=== PATIENT | female | born 1935 | race Two or more races ===

== ENCOUNTER 2016-05-18 17:12 | Inpatient (IN) | payer SELFPAY ==
[~2016-05-18] VITALS: Ht 160 cm; Wt 62.7 kg
[~2016-05-18 17:12] MED LIST: AMLO10TA2 PO; FERR-26 PO; FLUT1DIS3 INH; GLIP10TA13 PO; LOSA50TA6 PO; METF500T4 PO; PRED20TA PO; VENTOLIN HFA18 GM INH
[2016-05-18 18:23] LABS: BILIRUBIN,URINE NEGATIVE (NEG); GLUCOSE,URINE NEGATIVE (NEG); NITRITE,URINE NEGATIVE (NEG); PH,URINE 5.5; UROBILINOGEN,URINE 0.2 mg/dL (0.2 mg/dL)
[2016-05-18 18:30] LABS: BACTERIA,URINE 0 /HPF (0-FEW); PROTEIN,URINE TRACE mg/dL (NEG-TRACE); RBC,URINE OCC /HPF (0-2); SQUAMOUS EPITHELIAL CELL,UR FEW /LPF
[2016-05-18 18:40] LABS: BASO # 0.2 x10^3/uL (0.0-0.2); BASO % 3 % (0-3); EOS % 1 % (0-3); LYMPH # 1.6 x10^3/uL (1.0-4.8); LYMPH % 28 % (24-48); MEAN CORPUSCULAR HEMOGLOBIN 20 pg (25-35); MEAN CORPUSCULAR HGB CONC 29 g/dL (31-37); MEAN CORPUSCULAR VOLUME 70 fL (79-100); MONO % 12 % (0-9); NEUT % 56 % (31-73); PLATELET COUNT 452 x10^3/uL (140-400); RED BLOOD COUNT 2.88 x10^6/uL (3.50-5.40); RED CELL DISTRIBUTION WIDTH 20.3 % (11.5-14.5); WHITE BLOOD COUNT 5.9 x10^3/uL (4.0-11.0)
[2016-05-18 18:45] LABS: HEMATOCRIT 20.1 % (36.0-47.0); HEMOGLOBIN 5.9 g/dL (12.0-15.5)
[2016-05-18 18:46] LABS: INR 1.1 (0.8-1.1); PROTHROMBIN TIME PATIENT 13.3 SEC (11.7-14.0)
[2016-05-18 18:56] LABS: CALCIUM 8.3 mg/dL (8.5-10.1); CREATININE 0.9 mg/dL (0.6-1.0); GFR 60.6; POTASSIUM 4.4 mmol/L (3.5-5.1)
[2016-05-18 19:00] LABS: ALBUMIN 3.4 g/dL (3.4-5.0); ALBUMIN/GLOBULIN RATIO 1.2 (1.0-1.7); TOTAL BILIRUBIN 0.3 mg/dL (0.2-1.0); TOTAL PROTEIN 6.2 g/dL (6.4-8.2)
[2016-05-18] MEDS ORDERED: ONDANSETRON PF 4 MG/2 ML VIAL. IV PRN ×2 (19:00→20:15)
[2016-05-18] MEDS ORDERED: ACETAMINOPHEN 325 MG TABLET. PO PRN ×2 (19:00→20:15)
--- NOTE | 2016-05-18 19:10 | PHYS DOC ---
Past Medical History Past Medical History: Anemia, Asthma, Bronchitis, Diabetes-Type II, Hypertension Past Surgical History: Cholecystectomy Additional Past Surgical Histo: unknown abdominal surgery Alcohol Use: None Drug Use: None Adult General Chief Complaint Chief Complaint: ABNORMAL LABS HPI HPI 80-year-old female with history of anemia resents from her primary care physician's office secondary to some generalized weakness exertional dyspnea and the fact that she looked pale to her physician. Patient denies any chest pain. She's had no fever chills or sweats. No nausea or vomiting. She has not had any melena or hematemesis. [] Review of Systems Review of Systems Constitutional: Denies fever or chills [] Eyes: Denies change in visual acuity, redness, or eye pain [] HENT: Denies nasal congestion or sore throat [] Respiratory: Denies cough or shortness of breath [] Cardiovascular: No additional information not addressed in HPI [] GI: Denies abdominal pain, nausea, vomiting, bloody stools or diarrhea [] : Denies dysuria or hematuria [] Musculoskeletal: Denies back pain or joint pain [] Integument: Pallor [] Neurologic: Denies headache, focal weakness or sensory changes [] Endocrine: Denies polyuria or polydipsia [] Current Medications Current Medications Current Medications Medications (Trade) Dose Ordered Sig/[facility] Start Time Stop Time Status Last Admin Dose Admin Acetaminophen (Tylenol) 650 mg PRN Q4HRS PRN 05/18/16 19:00 05/19/16 18:59 Ondansetron HCl (Zofran) 4 mg PRN Q8HRS PRN 05/18/16 19:00 05/19/16 18:59 Allergies Allergies Allergies Coded Allergies Type Severity Reaction Last Updated Verified No Known Drug Allergies 11/17/13 No Physical Exam Physical Exam Constitutional: Well developed, well nourished, no acute distress, non-toxic appearance. [] HENT: Normocephalic, atraumatic, bilateral external ears normal, oropharynx moist, no oral exudates, nose normal. [] Eyes: PERRLA, EOMI, conjunctiva pale, no discharge. [] Neck: Normal range of motion, no tenderness, supple, no stridor. [] Cardiovascular:Heart rate regular rhythm, no murmur [] Lungs & Thorax: Bilateral breath sounds clear to auscultation [] Abdomen: Bowel sounds normal, soft, no tenderness, no masses, no pulsatile masses. [] Skin: Warm, dry, no erythema, no rash, pallor. [] Back: No tenderness, no CVA tenderness. [] Extremities: No tenderness, no cyanosis, no clubbing, ROM intact, no edema. [] Neurologic: Alert and oriented X 3, normal motor function, normal sensory function, no focal deficits noted. [] Psychologic: Affect normal, judgement normal, mood normal. [] Current Patient Data Vital Signs Vital Signs Date Time Temp Pulse Resp B/P Pulse Ox O2 Delivery O2 Flow Rate FiO2 05/18/16 18:16 98.7 99 18 133/80 97 Room Air 98.7 Lab Values Laboratory Tests Test 05/18/16 18:00 05/18/16 18:30 Urine Collection Type Unknown Urine Color Yellow Urine Clarity Clear Urine pH 5.5 Urine Specific [place] 1.015 Urine Protein Tracemg/dL (NEG-TRACE) Urine Glucose (UA) Negativemg/dL (NEG) Urine Ketones (Stick) Negativemg/dL (NEG) Urine Blood Negative (NEG) Urine Nitrite Negative (NEG) Urine Bilirubin Negative (NEG) Urine Urobilinogen Dipstick 0.2mg/dL (0.2 mg/dL) Urine Leukocyte Esterase Small (NEG) Urine RBC Occ/HPF (0-2) Urine WBC 5-10/HPF (0-4) Urine Squamous Epithelial Cells Few/LPF Urine Bacteria 0/HPF (0-FEW) Urine Mucus Slight/LPF White Blood Count 5.9x10^3/uL (4.0-11.0) Red Blood Count 2.88x10^6/uL (3.50-5.40) L Hemoglobin 5.9g/dL (12.0-15.5) *L Hematocrit 20.1% (36.0-47.0) *L Mean Corpuscular Volume 70fL (79-100) L Mean Corpuscular Hemoglobin 20pg (25-35) L Mean Corpuscular Hemoglobin Concent 29g/dL (31-37) L Red Cell Distribution Width 20.3% (11.5-14.5) H Platelet Count 452x10^3/uL (140-400) H Neutrophils (%) (Auto) 56% (31-73) Lymphocytes (%) (Auto) 28% (24-48) Monocytes (%) (Auto) 12% (0-9) H Eosinophils (%) (Auto) 1% (0-3) Basophils (%) (Auto) 3% (0-3) Neutrophils # (Auto) 3.3x10^3uL (1.8-7.7) Lymphocytes # (Auto) 1.6x10^3/uL (1.0-4.8) Monocytes # (Auto) 0.7x10^3/uL (0.0-1.1) Eosinophils # (Auto) 0.1x10^3/uL (0.0-0.7) Basophils # (Auto) 0.2x10^3/uL (0.0-0.2) Platelet Estimate Pending Prothrombin Time 13.3SEC (11.7-14.0) Prothrombin Time INR 1.1 (0.8-1.1) Sodium Level 142mmol/L (136-145) Potassium Level 4.4mmol/L (3.5-5.1) Chloride Level 105mmol/L (98-107) Carbon Dioxide Level 23mmol/L (21-32) Anion Gap 14 (6-14) Blood Urea Nitrogen 9mg/dL (7-20) Creatinine 0.9mg/dL (0.6-1.0) Estimated GFR (Cockcroft-Gault) 60.6 BUN/Creatinine Ratio 10 (6-20) Glucose Level 133mg/dL (70-99) H Calcium Level 8.3mg/dL (8.5-10.1) L Total Bilirubin 0.3mg/dL (0.2-1.0) Aspartate Amino Transferase (AST) 14U/L (15-37) L Alanine Aminotransferase (ALT) 12U/L (14-59) L Alkaline Phosphatase 45U/L (46-116) L Total Protein 6.2g/dL (6.4-8.2) L Albumin 3.4g/dL (3.4-5.0) Albumin/Globulin Ratio 1.2 (1.0-1.7) Laboratory Tests 05/18/16 18:30 Laboratory Tests 05/18/16 18:30 EKG EKG [] Radiology/Procedures Radiology/Procedures [] Course & Med Decision Making Course & Med Decision Making Pertinent Labs and Imaging studies reviewed. (See chart for details) [ED course: Evaluation reveals a very pale-appearing 80-year-old female with a dangerously low hemoglobin and hematocrit. I have typed and crossed her for 2 units of packed red blood cells and given permission to the nurses to go ahead and transfuse. I spoke with the hospitalist who agreed to accept the patient for admission. We will also consult the GI service for further evaluation] Dragon Disclaimer Dragon Disclaimer This electronic medical record was generated, in whole or in part, using a voice recognition dictation system. Departure Departure Impression: Primary Impression: Anemia Additional Impression: Symptomatic anemia Disposition: 09 ADMITTED INPATIENT Admitting Physician: Gabriel Markham Condition: STABLE Referrals: MAIDA ROBERTS DO (PCP) Problem Qualifiers Primary Impression: Anemia Anemia type: unspecified type Qualified Code: D64.9 - Anemia, unspecified TRACE HEIN DO May 18, 2016 19:09
[2016-05-18 19:31] LABS: ANISOCYTOSIS SLIGHT; PLT ESTIMATE INCREASED (ADEQUATE); POLYCHROMASIA SLIGHT; TARGET CELLS MOD
[2016-05-18] MEDS ORDERED: ALBUTEROL SULFATE 2.5 MG/3 ML NEBU. NEB PRN (20:15)
[2016-05-18] MEDS ORDERED: HYDROCODONE/APAP 5/325MG TABLET. PO PRN (20:15)
[2016-05-18] MEDS ORDERED: hydrALAZINE 20 MG/ML VIAL. IVP PRN (20:15)
[2016-05-18] MEDS ORDERED: LORA10TA3 PO (22:05)
[2016-05-18] MEDS ORDERED: CALC-530 PO (22:05)
[2016-05-18] MEDS ORDERED: OMEP20TA PO (22:05)
[2016-05-18] MEDS ORDERED: PROVENTIL HFA6.7 GM IH (22:10)
--- NOTE | 2016-05-18 22:53 | PDOC1 ---
History and Physical Past Medical History Cardiovascular: HTN Pulmonary: Asthma, Bronchitis Heme/Onc: Anemia NOS, Iron deficiency Anemia Past Surgical History Past Surgical History: No pertinent history Family History Family History: No Significant, Family History Unknown, Other (? HTN) Social History ALCOHOL: none Drugs: None Current Problem List Problem List Problems Medical Problems: (1) Anemia Status: Acute (2) Symptomatic anemia Status: Acute Current Medications Current Medications Current Medications Medications (Trade) Dose Ordered Sig/Kristen Start Time Stop Time Status Last Admin Dose Admin Acetaminophen (Tylenol) 325 mg PRN Q6HRS PRN 05/18/16 20:15 Acetaminophen/ Hydrocodone Bitart (Lortab 5/325) 1 tab PRN Q6HRS PRN 05/18/16 20:15 Albuterol Sulfate (Ventolin Neb Soln) 2.5 mg PRN Q4HRS PRN 05/18/16 20:15 Hydralazine HCl (Apresoline) 10 mg PRN Q4HRS PRN 05/18/16 20:15 Ondansetron HCl (Zofran) 4 mg PRN Q8HRS PRN 05/18/16 20:15 Allergies Allergies Allergies Coded Allergies Type Severity Reaction Last Updated Verified No Known Drug Allergies 11/17/13 No ROS Review of System CONSTITUTIONAL: No fever or chills EYES: No recent changes SKIN: No rash or itching CARDIOVASCULAR: No chest pain, syncope, palpitations, or edema RESPIRATORY: No SOB or cough GASTROINTESTINAL: No nausea, vomiting or abdominal pain NEUROLOGICAL: No headaches or weakness ENDOCRINE: No cold or heat intolerance GENITOURINARY: No urgency or frequency of urination MUSCULOSKELETAL: No back pain or joint pain LYMPHATICS: No enlarged lymph nodes PSYCHIATRIC: No anxiety or depression Physical Exam Physical Exam GEN.: No apparent distress. Alert and oriented. HEENT: Head is normocephalic, atraumatic NECK: Supple. NO jvd LUNGS: Clear to auscultation. normal air flow HEART: RRR, S1, S2 present. Peripheral pulses intact ABDOMEN: Soft, nontender. Positive bowel sounds. EXTREMITIES: Without any cyanosis. NEUROLOGIC: Normal speech, normal tone PSYCHIATRIC: Normal affect, normal mood. SKIN: No ulcerations Vitals Vitals Vital Signs Date Time Temp Pulse Resp B/P Pulse Ox O2 Delivery O2 Flow Rate FiO2 05/18/16 22:04 98 Room Air 05/18/16 19:11 90 18 122/57 05/18/16 18:16 98.7 98.7 Labs Labs Laboratory Tests Test 05/18/16 18:00 05/18/16 18:30 Urine Collection Type Unknown Urine Color Yellow Urine Clarity Clear Urine pH 5.5 Urine Specific [place] 1.015 Urine Protein Tracemg/dL (NEG-TRACE) Urine Glucose (UA) Negativemg/dL (NEG) Urine Ketones (Stick) Negativemg/dL (NEG) Urine Blood Negative (NEG) Urine Nitrite Negative (NEG) Urine Bilirubin Negative (NEG) Urine Urobilinogen Dipstick 0.2mg/dL (0.2 mg/dL) Urine Leukocyte Esterase Small (NEG) Urine RBC Occ/HPF (0-2) Urine WBC 5-10/HPF (0-4) Urine Squamous Epithelial Cells Few/LPF Urine Bacteria 0/HPF (0-FEW) Urine Mucus Slight/LPF White Blood Count 5.9x10^3/uL (4.0-11.0) Red Blood Count 2.88x10^6/uL (3.50-5.40) Hemoglobin 5.9g/dL (12.0-15.5) Hematocrit 20.1% (36.0-47.0) Mean Corpuscular Volume 70fL (79-100) Mean Corpuscular Hemoglobin 20pg (25-35) Mean Corpuscular Hemoglobin Concent 29g/dL (31-37) Red Cell Distribution Width 20.3% (11.5-14.5) Platelet Count 452x10^3/uL (140-400) Neutrophils (%) (Auto) 56% (31-73) Lymphocytes (%) (Auto) 28% (24-48) Monocytes (%) (Auto) 12% (0-9) Eosinophils (%) (Auto) 1% (0-3) Basophils (%) (Auto) 3% (0-3) Neutrophils # (Auto) 3.3x10^3uL (1.8-7.7) Lymphocytes # (Auto) 1.6x10^3/uL (1.0-4.8) Monocytes # (Auto) 0.7x10^3/uL (0.0-1.1) Eosinophils # (Auto) 0.1x10^3/uL (0.0-0.7) Basophils # (Auto) 0.2x10^3/uL (0.0-0.2) Platelet Estimate Increased (ADEQUATE) Polychromasia Slight Anisocytosis Slight Target Cells Mod Prothrombin Time 13.3SEC (11.7-14.0) Prothromb Time International Ratio 1.1 (0.8-1.1) Sodium Level 142mmol/L (136-145) Potassium Level 4.4mmol/L (3.5-5.1) Chloride Level 105mmol/L (98-107) Carbon Dioxide Level 23mmol/L (21-32) Anion Gap 14 (6-14) Blood Urea Nitrogen 9mg/dL (7-20) Creatinine 0.9mg/dL (0.6-1.0) Estimated GFR (Cockcroft-Gault) 60.6 BUN/Creatinine Ratio 10 (6-20) Glucose Level 133mg/dL (70-99) Calcium Level 8.3mg/dL (8.5-10.1) Total Bilirubin 0.3mg/dL (0.2-1.0) Aspartate Amino Transf (AST/SGOT) 14U/L (15-37) Alanine Aminotransferase (ALT/SGPT) 12U/L (14-59) Alkaline Phosphatase 45U/L (46-116) Total Protein 6.2g/dL (6.4-8.2) Albumin 3.4g/dL (3.4-5.0) Albumin/Globulin Ratio 1.2 (1.0-1.7) Laboratory Tests Test 05/18/16 18:00 05/18/16 18:30 Urine Collection Type Unknown Urine Color Yellow Urine Clarity Clear Urine pH 5.5 Urine Specific [place] 1.015 Urine Protein Tracemg/dL (NEG-TRACE) Urine Glucose (UA) Negativemg/dL (NEG) Urine Ketones (Stick) Negativemg/dL (NEG) Urine Blood Negative (NEG) Urine Nitrite Negative (NEG) Urine Bilirubin Negative (NEG) Urine Urobilinogen Dipstick 0.2mg/dL (0.2 mg/dL) Urine Leukocyte Esterase Small (NEG) Urine RBC Occ/HPF (0-2) Urine WBC 5-10/HPF (0-4) Urine Squamous Epithelial Cells Few/LPF Urine Bacteria 0/HPF (0-FEW) Urine Mucus Slight/LPF White Blood Count 5.9x10^3/uL (4.0-11.0) Red Blood Count 2.88x10^6/uL (3.50-5.40) Hemoglobin 5.9g/dL (12.0-15.5) Hematocrit 20.1% (36.0-47.0) Mean Corpuscular Volume 70fL (79-100) Mean Corpuscular Hemoglobin 20pg (25-35) Mean Corpuscular Hemoglobin Concent 29g/dL (31-37) Red Cell Distribution Width 20.3% (11.5-14.5) Platelet Count 452x10^3/uL (140-400) Neutrophils (%) (Auto) 56% (31-73) Lymphocytes (%) (Auto) 28% (24-48) Monocytes (%) (Auto) 12% (0-9) Eosinophils (%) (Auto) 1% (0-3) Basophils (%) (Auto) 3% (0-3) Neutrophils # (Auto) 3.3x10^3uL (1.8-7.7) Lymphocytes # (Auto) 1.6x10^3/uL (1.0-4.8) Monocytes # (Auto) 0.7x10^3/uL (0.0-1.1) Eosinophils # (Auto) 0.1x10^3/uL (0.0-0.7) Basophils # (Auto) 0.2x10^3/uL (0.0-0.2) Platelet Estimate Increased (ADEQUATE) Polychromasia Slight Anisocytosis Slight Target Cells Mod Prothrombin Time 13.3SEC (11.7-14.0) Prothromb Time International Ratio 1.1 (0.8-1.1) Sodium Level 142mmol/L (136-145) Potassium Level 4.4mmol/L (3.5-5.1) Chloride Level 105mmol/L (98-107) Carbon Dioxide Level 23mmol/L (21-32) Anion Gap 14 (6-14) Blood Urea Nitrogen 9mg/dL (7-20) Creatinine 0.9mg/dL (0.6-1.0) Estimated GFR (Cockcroft-Gault) 60.6 BUN/Creatinine Ratio 10 (6-20) Glucose Level 133mg/dL (70-99) Calcium Level 8.3mg/dL (8.5-10.1) Total Bilirubin 0.3mg/dL (0.2-1.0) Aspartate Amino Transf (AST/SGOT) 14U/L (15-37) Alanine Aminotransferase (ALT/SGPT) 12U/L (14-59) Alkaline Phosphatase 45U/L (46-116) Total Protein 6.2g/dL (6.4-8.2) Albumin 3.4g/dL (3.4-5.0) Albumin/Globulin Ratio 1.2 (1.0-1.7) VTE Prophylaxis Ordered VTE Prophylaxis Devices: Yes VTE Pharmacological Prophylaxi: No HILDA PRATT MD May 18, 2016 22:53
[2016-05-18 23:00] VITALS: BP 120/57
[2016-05-19] VITALS (13 sets, daily range): BP systolic 107–152; BP diastolic 39–74
--- NOTE | 2016-05-19 01:20 | HP ---
ADMIT DATE: 05/18/2016 CHIEF COMPLAINT: 1. Symptomatic anemia. 2. Abnormal labs. HISTORY OF PRESENT ILLNESS: A 80-year-old female patient with prior history of anemia, iron deficiency, presented to the ER with complaints of abnormal labs. The patient was seen by primary care doctor and office called the patient to go to ER due to abnormal labs and generalized weakness. The patient's hemoglobin was 5.1 and she is complaining of fatigue. Denies any upper or lower GI bleeding. However, the patient had chronic internal hemorrhoids and also in the past she had evaluation by Gastroenterology in 07/2015. PAST MEDICAL HISTORY, PHYSICAL EXAM AND REVIEW OF SYSTEMS: Please see my electronic H and P. LABORATORY FINDINGS: 1. Hemoglobin is 5.9, previous hemoglobin 9.4, hematocrit ____ MCV 70, and platelets 452. 2. Chemistry: Sodium is 142, potassium ____ chloride is 105, carbon dioxide 23, BUN is 14, creatinine is 0.9, GFR is 60.6. AST is 12, ALT 45. 3. Coagulation panel: INR is 1.1, PT 13.3. IMAGING STUDIES: Not done. ASSESSMENT: Acute symptomatic anemia, suspected iron deficiency anemia. PLAN: 1. Two units of PRBC have been ordered and we will continue to transfuse tonight. 2. Gastroenterology has been consulted ____. 3. ____ medications reviewed and reconciled ____ diabetes and hypertension. If blood pressure more than 160, patient will receive IV hydralazine. 4. Regular diet. 5. P.r.n. nebulizations. 6. No DVT prophylaxis. HILDA PRATT MD DR: KOFI/lesley JOB#: [id number] / [id number]
[2016-05-19 06:51] LABS: BASO # 0.1 x10^3/uL (0.0-0.2); BASO % 2 % (0-3); EOS % 2 % (0-3); HEMATOCRIT 28.7 % (36.0-47.0); HEMOGLOBIN 8.7 g/dL (12.0-15.5); LYMPH # 1.2 x10^3/uL (1.0-4.8); LYMPH % 26 % (24-48); MEAN CORPUSCULAR HEMOGLOBIN 23 pg (25-35); MEAN CORPUSCULAR HGB CONC 31 g/dL (31-37); MEAN CORPUSCULAR VOLUME 76 fL (79-100); MONO % 13 % (0-9); NEUT % 57 % (31-73); PLATELET COUNT 384 x10^3/uL (140-400); RED BLOOD COUNT 3.79 x10^6/uL (3.50-5.40); RED CELL DISTRIBUTION WIDTH 23.9 % (11.5-14.5); WHITE BLOOD COUNT 4.6 x10^3/uL (4.0-11.0)
[2016-05-19 07:13] LABS: CREATININE 0.7 mg/dL (0.6-1.0); GFR 80.9; TOTAL BILIRUBIN 0.6 mg/dL (0.2-1.0); TOTAL PROTEIN 6.1 g/dL (6.4-8.2)
[2016-05-19] MEDS: LOSARTAN POTASSIUM 50 MG TABLET. PO SCH (09:00)
--- NOTE | 2016-05-19 09:50 | PDOC2 ---
GI CONSULT Reason For Consult: Symptomatic anemia HPI: HPI: 80 y/o female who speaks Nepalese. At the time I saw her, her daughter was present but unable to provide translation. Per chart, sent to ER from PCP's office w/ exertional dyspnea. Labs show Hgb 5.9 (now 8.7 s/p transfusion 2 units). H/o ELYSE (?AVMs) w/ colonoscopy by Dr. Turner in 07/2015 revealing sigmoid diverticulosis and internal hemorrhoids. At that time, iron studies were low and folic acid, retic count, and B12 were WNL. It's unclear if she's had previous EGD. She denies obvious bleeding and abdominal pain.She has been kept NPO. PMH: PMH: from chart - asthma/COPD, bronchitis, DM, HTN, HLD, OA, depression, GERD, allergic rhinitis Social History: ALCOHOL: none Drugs: None ROS: Difficult w/ communication barrier. RESP: +SOA GI: Per HPI VItals: Vitals: Vital Signs Date Time Temp Pulse Resp B/P Pulse Ox O2 Delivery O2 Flow Rate FiO2 05/19/16 08:47 98.1 74 18 128/68 96 Room Air 98.1 Labs: Labs: Laboratory Tests Test 05/18/16 18:00 05/18/16 18:30 05/19/16 06:40 05/19/16 07:48 Urine Collection Type Unknown Urine Color Yellow Urine Clarity Clear Urine pH 5.5 Urine Specific [place] 1.015 Urine Protein Tracemg/dL (NEG-TRACE) Urine Glucose (UA) Negativemg/dL (NEG) Urine Ketones (Stick) Negativemg/dL (NEG) Urine Blood Negative (NEG) Urine Nitrite Negative (NEG) Urine Bilirubin Negative (NEG) Urine Urobilinogen Dipstick 0.2mg/dL (0.2 mg/dL) Urine Leukocyte Esterase Small (NEG) Urine RBC Occ/HPF (0-2) Urine WBC 5-10/HPF (0-4) Urine Squamous Epithelial Cells Few/LPF Urine Bacteria 0/HPF (0-FEW) Urine Mucus Slight/LPF White Blood Count 5.9x10^3/uL (4.0-11.0) 4.6x10^3/uL (4.0-11.0) Red Blood Count 2.88x10^6/uL (3.50-5.40) 3.79x10^6/uL (3.50-5.40) Hemoglobin 5.9g/dL (12.0-15.5) 8.7g/dL (12.0-15.5) Hematocrit 20.1% (36.0-47.0) 28.7% (36.0-47.0) Mean Corpuscular Volume 70fL (79-100) 76fL (79-100) Mean Corpuscular Hemoglobin 20pg (25-35) 23pg (25-35) Mean Corpuscular Hemoglobin Concent 29g/dL (31-37) 31g/dL (31-37) Red Cell Distribution Width 20.3% (11.5-14.5) 23.9% (11.5-14.5) Platelet Count 452x10^3/uL (140-400) 384x10^3/uL (140-400) Neutrophils (%) (Auto) 56% (31-73) 57% (31-73) Lymphocytes (%) (Auto) 28% (24-48) 26% (24-48) Monocytes (%) (Auto) 12% (0-9) 13% (0-9) Eosinophils (%) (Auto) 1% (0-3) 2% (0-3) Basophils (%) (Auto) 3% (0-3) 2% (0-3) Neutrophils # (Auto) 3.3x10^3uL (1.8-7.7) 2.6x10^3uL (1.8-7.7) Lymphocytes # (Auto) 1.6x10^3/uL (1.0-4.8) 1.2x10^3/uL (1.0-4.8) Monocytes # (Auto) 0.7x10^3/uL (0.0-1.1) 0.6x10^3/uL (0.0-1.1) Eosinophils # (Auto) 0.1x10^3/uL (0.0-0.7) 0.1x10^3/uL (0.0-0.7) Basophils # (Auto) 0.2x10^3/uL (0.0-0.2) 0.1x10^3/uL (0.0-0.2) Platelet Estimate Increased (ADEQUATE) Polychromasia Slight Anisocytosis Slight Target Cells Mod Prothrombin Time 13.3SEC (11.7-14.0) Prothromb Time International Ratio 1.1 (0.8-1.1) Sodium Level 142mmol/L (136-145) 138mmol/L (136-145) Potassium Level 4.4mmol/L (3.5-5.1) 4.0mmol/L (3.5-5.1) Chloride Level 105mmol/L (98-107) 107mmol/L (98-107) Carbon Dioxide Level 23mmol/L (21-32) 24mmol/L (21-32) Anion Gap 14 (6-14) 7 (6-14) Blood Urea Nitrogen 9mg/dL (7-20) 5mg/dL (7-20) Creatinine 0.9mg/dL (0.6-1.0) 0.7mg/dL (0.6-1.0) Estimated GFR (Cockcroft-Gault) 60.6 80.9 BUN/Creatinine Ratio 10 (6-20) 7 (6-20) Glucose Level 133mg/dL (70-99) 107mg/dL (70-99) Calcium Level 8.3mg/dL (8.5-10.1) 8.0mg/dL (8.5-10.1) Total Bilirubin 0.3mg/dL (0.2-1.0) 0.6mg/dL (0.2-1.0) Aspartate Amino Transf (AST/SGOT) 14U/L (15-37) 11U/L (15-37) Alanine Aminotransferase (ALT/SGPT) 12U/L (14-59) 6U/L (14-59) Alkaline Phosphatase 45U/L (46-116) 44U/L (46-116) Total Protein 6.2g/dL (6.4-8.2) 6.1g/dL (6.4-8.2) Albumin 3.4g/dL (3.4-5.0) 3.0g/dL (3.4-5.0) Albumin/Globulin Ratio 1.2 (1.0-1.7) 1.0 (1.0-1.7) Glucose (Fingerstick) 113mg/dL (70-99) Allergies: Coded Allergies: No Known Drug Allergies (Unverified , 11/17/13) Medications: Please see EMR. PE: GEN: NAD HEENT: Atraumatic, PERRL LUNGS: CTAB HEART: RRR ABD: NABS, S/ND/NT EXTREMITY: No edema SKIN: No rashes, no jaundice NEURO/PSYCH: A & O 3 A/P: A/P: ELYSE -history of -Hgb improved s/p transfusion -on iron and omeprazole at home (per list) CRC screen -colonoscopy 07/2015 -- Difficult w/language barrier. D/w Dr. Turner, GI lab - tentatively plan for EGD this afternoon r/o upper GI source. Keep NPO. D/w RN - hopefully can locate [employer] phone, I will return to discuss EGD, etc. w/ pt. Update: unable to locate [employer] phone, although it is a bit easier to communicate w/ daughter later in this morning. Pt/daughter are agreeable to EGD this afternoon. Daughter says the pt had an EGD a couple years ago that was normal. SHEREEN BERG May 19, 2016 09:50
[2016-05-19] MEDS: PANTOPRAZOLE IV PUSH 40 MG VIAL. IVP SCH (10:30)
[2016-05-19] MEDS ORDERED: IV RINGERS,LACTATED 1000ML 1,000 ML IV SCH (11:42)
[2016-05-19] MEDS ORDERED: PROPOFOL 20 ML IV ONE (13:30)
--- NOTE | 2016-05-19 13:44 | PDOC ---
PROGRESS NOTES Chief Complaint Chief Complaint 1. Symptomatic anemia 2. Microcytic anemia r/o acute blood loss 3. ELYSE History of Present Illness History of Present Illness HAving an egd done Chart reviewed HGb upt o 8 from 5 after 2 pRBC VS stable Vitals Vitals Vital Signs Date Time Temp Pulse Resp B/P Pulse Ox O2 Delivery O2 Flow Rate FiO2 05/19/16 13:03 Room Air 05/19/16 13:00 98.5 82 20 97 98.5 05/19/16 10:50 131/64 Physical Exam General: Alert, Oriented X3, Cooperative Heart: Regular rate, Normal S1, Normal S2 Lungs: Clear Abdomen: Normal bowel sounds, Soft Extremities: No clubbing, No cyanosis Skin: No rashes, No breakdown Labs LABS Laboratory Tests Test 05/18/16 18:00 05/18/16 18:30 05/19/16 06:40 05/19/16 07:48 Urine Collection Type Unknown Urine Color Yellow Urine Clarity Clear Urine pH 5.5 Urine Specific [place] 1.015 Urine Protein Tracemg/dL (NEG-TRACE) Urine Glucose (UA) Negativemg/dL (NEG) Urine Ketones (Stick) Negativemg/dL (NEG) Urine Blood Negative (NEG) Urine Nitrite Negative (NEG) Urine Bilirubin Negative (NEG) Urine Urobilinogen Dipstick 0.2mg/dL (0.2 mg/dL) Urine Leukocyte Esterase Small (NEG) Urine RBC Occ/HPF (0-2) Urine WBC 5-10/HPF (0-4) Urine Squamous Epithelial Cells Few/LPF Urine Bacteria 0/HPF (0-FEW) Urine Mucus Slight/LPF White Blood Count 5.9x10^3/uL (4.0-11.0) 4.6x10^3/uL (4.0-11.0) Red Blood Count 2.88x10^6/uL (3.50-5.40) 3.79x10^6/uL (3.50-5.40) Hemoglobin 5.9g/dL (12.0-15.5) 8.7g/dL (12.0-15.5) Hematocrit 20.1% (36.0-47.0) 28.7% (36.0-47.0) Mean Corpuscular Volume 70fL (79-100) 76fL (79-100) Mean Corpuscular Hemoglobin 20pg (25-35) 23pg (25-35) Mean Corpuscular Hemoglobin Concent 29g/dL (31-37) 31g/dL (31-37) Red Cell Distribution Width 20.3% (11.5-14.5) 23.9% (11.5-14.5) Platelet Count 452x10^3/uL (140-400) 384x10^3/uL (140-400) Neutrophils (%) (Auto) 56% (31-73) 57% (31-73) Lymphocytes (%) (Auto) 28% (24-48) 26% (24-48) Monocytes (%) (Auto) 12% (0-9) 13% (0-9) Eosinophils (%) (Auto) 1% (0-3) 2% (0-3) Basophils (%) (Auto) 3% (0-3) 2% (0-3) Neutrophils # (Auto) 3.3x10^3uL (1.8-7.7) 2.6x10^3uL (1.8-7.7) Lymphocytes # (Auto) 1.6x10^3/uL (1.0-4.8) 1.2x10^3/uL (1.0-4.8) Monocytes # (Auto) 0.7x10^3/uL (0.0-1.1) 0.6x10^3/uL (0.0-1.1) Eosinophils # (Auto) 0.1x10^3/uL (0.0-0.7) 0.1x10^3/uL (0.0-0.7) Basophils # (Auto) 0.2x10^3/uL (0.0-0.2) 0.1x10^3/uL (0.0-0.2) Platelet Estimate Increased (ADEQUATE) Polychromasia Slight Anisocytosis Slight Target Cells Mod Prothrombin Time 13.3SEC (11.7-14.0) Prothromb Time International Ratio 1.1 (0.8-1.1) Sodium Level 142mmol/L (136-145) 138mmol/L (136-145) Potassium Level 4.4mmol/L (3.5-5.1) 4.0mmol/L (3.5-5.1) Chloride Level 105mmol/L (98-107) 107mmol/L (98-107) Carbon Dioxide Level 23mmol/L (21-32) 24mmol/L (21-32) Anion Gap 14 (6-14) 7 (6-14) Blood Urea Nitrogen 9mg/dL (7-20) 5mg/dL (7-20) Creatinine 0.9mg/dL (0.6-1.0) 0.7mg/dL (0.6-1.0) Estimated GFR (Cockcroft-Gault) 60.6 80.9 BUN/Creatinine Ratio 10 (6-20) 7 (6-20) Glucose Level 133mg/dL (70-99) 107mg/dL (70-99) Calcium Level 8.3mg/dL (8.5-10.1) 8.0mg/dL (8.5-10.1) Total Bilirubin 0.3mg/dL (0.2-1.0) 0.6mg/dL (0.2-1.0) Aspartate Amino Transf (AST/SGOT) 14U/L (15-37) 11U/L (15-37) Alanine Aminotransferase (ALT/SGPT) 12U/L (14-59) 6U/L (14-59) Alkaline Phosphatase 45U/L (46-116) 44U/L (46-116) Total Protein 6.2g/dL (6.4-8.2) 6.1g/dL (6.4-8.2) Albumin 3.4g/dL (3.4-5.0) 3.0g/dL (3.4-5.0) Albumin/Globulin Ratio 1.2 (1.0-1.7) 1.0 (1.0-1.7) Glucose (Fingerstick) 113mg/dL (70-99) Test 05/19/16 11:42 Glucose (Fingerstick) 109mg/dL (70-99) Review of Systems Review of Systems CAnt be obtained Assessment and Plan Assessmemt and Plan Await EGD results PPI Cont ferrous sulfate Need to ask about menstrual hx Per chart has had GI work up in past - unrevealing? Problems Medical Problems: (1) Anemia Status: Acute (2) Symptomatic anemia Status: Acute Problems: Comment Review of Relevant I have reviewed the following items cayla (where applicable) has been applied. Labs Laboratory Tests Test 05/18/16 18:00 05/18/16 18:30 05/19/16 06:40 05/19/16 07:48 Urine Collection Type Unknown Urine Color Yellow Urine Clarity Clear Urine pH 5.5 Urine Specific [place] 1.015 Urine Protein Tracemg/dL (NEG-TRACE) Urine Glucose (UA) Negativemg/dL (NEG) Urine Ketones (Stick) Negativemg/dL (NEG) Urine Blood Negative (NEG) Urine Nitrite Negative (NEG) Urine Bilirubin Negative (NEG) Urine Urobilinogen Dipstick 0.2mg/dL (0.2 mg/dL) Urine Leukocyte Esterase Small (NEG) Urine RBC Occ/HPF (0-2) Urine WBC 5-10/HPF (0-4) Urine Squamous Epithelial Cells Few/LPF Urine Bacteria 0/HPF (0-FEW) Urine Mucus Slight/LPF White Blood Count 5.9x10^3/uL (4.0-11.0) 4.6x10^3/uL (4.0-11.0) Red Blood Count 2.88x10^6/uL (3.50-5.40) 3.79x10^6/uL (3.50-5.40) Hemoglobin 5.9g/dL (12.0-15.5) 8.7g/dL (12.0-15.5) Hematocrit 20.1% (36.0-47.0) 28.7% (36.0-47.0) Mean Corpuscular Volume 70fL (79-100) 76fL (79-100) Mean Corpuscular Hemoglobin 20pg (25-35) 23pg (25-35) Mean Corpuscular Hemoglobin Concent 29g/dL (31-37) 31g/dL (31-37) Red Cell Distribution Width 20.3% (11.5-14.5) 23.9% (11.5-14.5) Platelet Count 452x10^3/uL (140-400) 384x10^3/uL (140-400) Neutrophils (%) (Auto) 56% (31-73) 57% (31-73) Lymphocytes (%) (Auto) 28% (24-48) 26% (24-48) Monocytes (%) (Auto) 12% (0-9) 13% (0-9) Eosinophils (%) (Auto) 1% (0-3) 2% (0-3) Basophils (%) (Auto) 3% (0-3) 2% (0-3) Neutrophils # (Auto) 3.3x10^3uL (1.8-7.7) 2.6x10^3uL (1.8-7.7) Lymphocytes # (Auto) 1.6x10^3/uL (1.0-4.8) 1.2x10^3/uL (1.0-4.8) Monocytes # (Auto) 0.7x10^3/uL (0.0-1.1) 0.6x10^3/uL (0.0-1.1) Eosinophils # (Auto) 0.1x10^3/uL (0.0-0.7) 0.1x10^3/uL (0.0-0.7) Basophils # (Auto) 0.2x10^3/uL (0.0-0.2) 0.1x10^3/uL (0.0-0.2) Platelet Estimate Increased (ADEQUATE) Polychromasia Slight Anisocytosis Slight Target Cells Mod Prothrombin Time 13.3SEC (11.7-14.0) Prothromb Time International Ratio 1.1 (0.8-1.1) Sodium Level 142mmol/L (136-145) 138mmol/L (136-145) Potassium Level 4.4mmol/L (3.5-5.1) 4.0mmol/L (3.5-5.1) Chloride Level 105mmol/L (98-107) 107mmol/L (98-107) Carbon Dioxide Level 23mmol/L (21-32) 24mmol/L (21-32) Anion Gap 14 (6-14) 7 (6-14) Blood Urea Nitrogen 9mg/dL (7-20) 5mg/dL (7-20) Creatinine 0.9mg/dL (0.6-1.0) 0.7mg/dL (0.6-1.0) Estimated GFR (Cockcroft-Gault) 60.6 80.9 BUN/Creatinine Ratio 10 (6-20) 7 (6-20) Glucose Level 133mg/dL (70-99) 107mg/dL (70-99) Calcium Level 8.3mg/dL (8.5-10.1) 8.0mg/dL (8.5-10.1) Total Bilirubin 0.3mg/dL (0.2-1.0) 0.6mg/dL (0.2-1.0) Aspartate Amino Transf (AST/SGOT) 14U/L (15-37) 11U/L (15-37) Alanine Aminotransferase (ALT/SGPT) 12U/L (14-59) 6U/L (14-59) Alkaline Phosphatase 45U/L (46-116) 44U/L (46-116) Total Protein 6.2g/dL (6.4-8.2) 6.1g/dL (6.4-8.2) Albumin 3.4g/dL (3.4-5.0) 3.0g/dL (3.4-5.0) Albumin/Globulin Ratio 1.2 (1.0-1.7) 1.0 (1.0-1.7) Glucose (Fingerstick) 113mg/dL (70-99) Test 05/19/16 11:42 Glucose (Fingerstick) 109mg/dL (70-99) Laboratory Tests Test 05/18/16 18:00 05/18/16 18:30 05/19/16 06:40 05/19/16 07:48 Urine Collection Type Unknown Urine Color Yellow Urine Clarity Clear Urine pH 5.5 Urine Specific [place] 1.015 Urine Protein Tracemg/dL (NEG-TRACE) Urine Glucose (UA) Negativemg/dL (NEG) Urine Ketones (Stick) Negativemg/dL (NEG) Urine Blood Negative (NEG) Urine Nitrite Negative (NEG) Urine Bilirubin Negative (NEG) Urine Urobilinogen Dipstick 0.2mg/dL (0.2 mg/dL) Urine Leukocyte Esterase Small (NEG) Urine RBC Occ/HPF (0-2) Urine WBC 5-10/HPF (0-4) Urine Squamous Epithelial Cells Few/LPF Urine Bacteria 0/HPF (0-FEW) Urine Mucus Slight/LPF White Blood Count 5.9x10^3/uL (4.0-11.0) 4.6x10^3/uL (4.0-11.0) Red Blood Count 2.88x10^6/uL (3.50-5.40) 3.79x10^6/uL (3.50-5.40) Hemoglobin 5.9g/dL (12.0-15.5) 8.7g/dL (12.0-15.5) Hematocrit 20.1% (36.0-47.0) 28.7% (36.0-47.0) Mean Corpuscular Volume 70fL (79-100) 76fL (79-100) Mean Corpuscular Hemoglobin 20pg (25-35) 23pg (25-35) Mean Corpuscular Hemoglobin Concent 29g/dL (31-37) 31g/dL (31-37) Red Cell Distribution Width 20.3% (11.5-14.5) 23.9% (11.5-14.5) Platelet Count 452x10^3/uL (140-400) 384x10^3/uL (140-400) Neutrophils (%) (Auto) 56% (31-73) 57% (31-73) Lymphocytes (%) (Auto) 28% (24-48) 26% (24-48) Monocytes (%) (Auto) 12% (0-9) 13% (0-9) Eosinophils (%) (Auto) 1% (0-3) 2% (0-3) Basophils (%) (Auto) 3% (0-3) 2% (0-3) Neutrophils # (Auto) 3.3x10^3uL (1.8-7.7) 2.6x10^3uL (1.8-7.7) Lymphocytes # (Auto) 1.6x10^3/uL (1.0-4.8) 1.2x10^3/uL (1.0-4.8) Monocytes # (Auto) 0.7x10^3/uL (0.0-1.1) 0.6x10^3/uL (0.0-1.1) Eosinophils # (Auto) 0.1x10^3/uL (0.0-0.7) 0.1x10^3/uL (0.0-0.7) Basophils # (Auto) 0.2x10^3/uL (0.0-0.2) 0.1x10^3/uL (0.0-0.2) Platelet Estimate Increased (ADEQUATE) Polychromasia Slight Anisocytosis Slight Target Cells Mod Prothrombin Time 13.3SEC (11.7-14.0) Prothromb Time International Ratio 1.1 (0.8-1.1) Sodium Level 142mmol/L (136-145) 138mmol/L (136-145) Potassium Level 4.4mmol/L (3.5-5.1) 4.0mmol/L (3.5-5.1) Chloride Level 105mmol/L (98-107) 107mmol/L (98-107) Carbon Dioxide Level 23mmol/L (21-32) 24mmol/L (21-32) Anion Gap 14 (6-14) 7 (6-14) Blood Urea Nitrogen 9mg/dL (7-20) 5mg/dL (7-20) Creatinine 0.9mg/dL (0.6-1.0) 0.7mg/dL (0.6-1.0) Estimated GFR (Cockcroft-Gault) 60.6 80.9 BUN/Creatinine Ratio 10 (6-20) 7 (6-20) Glucose Level 133mg/dL (70-99) 107mg/dL (70-99) Calcium Level 8.3mg/dL (8.5-10.1) 8.0mg/dL (8.5-10.1) Total Bilirubin 0.3mg/dL (0.2-1.0) 0.6mg/dL (0.2-1.0) Aspartate Amino Transf (AST/SGOT) 14U/L (15-37) 11U/L (15-37) Alanine Aminotransferase (ALT/SGPT) 12U/L (14-59) 6U/L (14-59) Alkaline Phosphatase 45U/L (46-116) 44U/L (46-116) Total Protein 6.2g/dL (6.4-8.2) 6.1g/dL (6.4-8.2) Albumin 3.4g/dL (3.4-5.0) 3.0g/dL (3.4-5.0) Albumin/Globulin Ratio 1.2 (1.0-1.7) 1.0 (1.0-1.7) Glucose (Fingerstick) 113mg/dL (70-99) Test 05/19/16 11:42 Glucose (Fingerstick) 109mg/dL (70-99) Microbiology 05/18/16 Urine Culture - Preliminary, Resulted 05/18/16 Urine Culture Result 1 (TIMA) - Preliminary, Resulted Medications Current Medications Ondansetron HCl (Zofran) 4 mg PRN Q8HRS PRN IV NAUSEA/VOMITING; Start 05/18/16 at 19:00; Stop 05/19/16 at 18:59 Acetaminophen (Tylenol) 650 mg PRN Q4HRS PRN PO FEVER; Start 05/18/16 at 19:00 ; Stop 05/19/16 at 18:59 Acetaminophen (Tylenol) 325 mg PRN Q6HRS PRN PO MILD PAIN / TEMP; Start at 20:15 Acetaminophen/ Hydrocodone Bitart (Lortab 5/325) 1 tab PRN Q6HRS PRN PO MODERATE TO SEVERE PAIN; Start 05/18/16 at 20:15 Hydralazine HCl (Apresoline) 10 mg PRN Q4HRS PRN IVP ELEVATED BP, SEE COMMENTS ; Start 05/18/16 at 20:15 Ondansetron HCl (Zofran) 4 mg PRN Q8HRS PRN IV NAUSEA/VOMITING; Start 05/18/16 at 20:15; Stop 05/19/16 at 09:26; Status DC Albuterol Sulfate (Ventolin Neb Soln) 2.5 mg PRN Q4HRS PRN NEB SHORTNESS OF BREATH; Start 05/18/16 at 20:15 Ferrous Sulfate (Feosol) 325 mg DAILY PO ; Start 05/19/16 at 09:00 Losartan Potassium (Cozaar) 100 mg DAILY PO ; Start 05/19/16 at 09:00 Ondansetron HCl (Zofran) 4 mg PRN Q6HRS PRN IV NAUSEA/VOMITING; Start 05/19/16 at 20:15 Pantoprazole Sodium 40 mg 40 mg DAILYAC IVP Last administered on 05/19/16t 10: 30; Start 05/19/16 at 10:00 Lactated Ringer's 1,000 ml @ 50 mls/hr Q20H IV Last administered on 05/19/16t 12:59; Start 05/19/16 at 11:42; Stop 05/19/16 at 23:41 Propofol (Diprivan) 40 ml @ As Directed STK-MED ONCE IV ; Start 05/19/16 at 13: 30; Stop 05/19/16 at 13:31; Status DC Active Scripts Active Ventolin Hfa Inhaler (Albuterol Sulfate) 18 Gm Hfa.aer.ad 1 Puff INH Q4HRS Advair 250-50 Diskus (Fluticasone/Salmeterol) 1 Puff Puff 1 Puff INH [id number] Reported Omeprazole 20 Mg Tablet.dr 1 Tab PO PRN PRN Loratadine 10 Mg Tablet 1 Tab PO DAILY Calcium Carbonate 300 Mg Tab.chew 1,500 Mg PO Losartan Potassium 50 Mg Tablet 100 Mg PO DAILY Ferrous Sulfate 325 Mg Tablet 1 Tab PO DAILY Glipizide 10 Mg Tablet 1 Tab PO BIDACBL Amlodipine Besylate 10 Mg Tablet 10 Mg PO DAILY Metformin Hcl 500 Mg Tablet 500 Mg PO BIDWMEALS Vitals/I & O Vital Sign - Last 24 Hours 05/18/16 05/18/16 05/18/16 05/18/16 18:11 18:16 18:41 19:11 Temp 98.7 98.7 Pulse 97 99 90 90 Resp 18 18 18 18 B/P 133/60 133/80 117/67 122/57 Pulse Ox 97 97 97 97 O2 Delivery Room Air Room Air Room Air Room Air 05/18/16 05/18/16 05/18/16 05/19/16 22:04 22:29 23:00 02:14 Temp 98.3 97.9 98.3 97.9 Pulse 86 87 Resp 18 16 B/P 120/57 114/39 Pulse Ox 98 91 O2 Delivery Room Air Room Air Room Air 05/19/16 05/19/16 05/19/16 05/19/16 02:34 03:00 03:35 04:23 Temp 97.5 98.1 97.7 97.3 97.5 98.1 97.7 97.3 Pulse 83 84 82 75 Resp 16 18 16 18 B/P 115/50 107/58 113/51 114/58 Pulse Ox 95 O2 Delivery Room Air 05/19/16 05/19/16 05/19/16 05/19/16 04:42 05:42 07:42 08:00 Temp 97.4 97.3 97.7 97.4 97.3 97.7 Pulse 84 78 78 Resp 16 18 18 B/P 119/57 107/50 119/50 Pulse Ox 95 O2 Delivery Room Air Room Air 05/19/16 05/19/16 05/19/16 05/19/16 08:47 10:50 13:00 13:03 Temp 98.1 98.3 98.5 98.1 98.3 98.5 Pulse 74 77 82 Resp 18 20 20 B/P 128/68 131/64 Pulse Ox 96 98 97 O2 Delivery Room Air Room Air Intake and Output 05/18/16 05/18/16 05/19/16 15:00 23:00 07:00 Intake Total 0 ml Balance 0 ml STELLA ECHEVARRIA MD May 19, 2016 13:44
--- NOTE | 2016-05-19 13:53 | PDOC4 ---
Operative Note Operative Note EGD Meds propofol per anesthesia Pre-op dx acute blood loss anemia Post op dx hiatal hernia/medium sized hiatal hernia Plan Resume diet Iron supplements as O/P SB series and capsule endoscopy if unable to maintain blood counts TERE HANKINS MD May 19, 2016 13:53
[2016-05-19] MEDS: FERROUS SULFATE 325 MG TABLET PO SCH (14:53)
[2016-05-19] MEDS ORDERED: ONDANSETRON PF 4 MG/2 ML VIAL. IV PRN (20:15)
[2016-05-20 03:00] VITALS: BP 145/65
[2016-05-20 05:34] LABS: CALCIUM 8.2 mg/dL (8.5-10.1); CREATININE 0.8 mg/dL (0.6-1.0); GFR 69.4; POTASSIUM 4.2 mmol/L (3.5-5.1)
[2016-05-20 07:00] VITALS: BP 132/66
[2016-05-20] MEDS: PANTOPRAZOLE IV PUSH 40 MG VIAL. IVP SCH (07:30)
[2016-05-20] MEDS: FERROUS SULFATE 325 MG TABLET PO SCH (09:00)
[2016-05-20] MEDS: LOSARTAN POTASSIUM 50 MG TABLET. PO SCH (09:00)
[2016-05-20 09:35] LABS: HEMATOCRIT 31.7 % (36.0-47.0); HEMOGLOBIN 9.7 g/dL (12.0-15.5)
[2016-05-20 11:13] VITALS: BP 141/68
[2016-05-20] MEDS ORDERED: PANT40TA3 PO (12:33)
--- NOTE | 2016-05-20 12:36 | PDOC3 ---
Discharge Summary Visit Information Date of Admission: May 18, 2016 Date of Discharge: May 20, 2016 Admitting Diagnosis Comment: 1. Symptomatic anemia 2. Microcytic anemia r/o acute blood loss 3. ELYSE 4. NON EROSIVE GASTRITIS by EGD Final Diagnosis Problems Medical Problems: (1) Anemia Status: Acute (2) Gastritis Status: Acute (3) Symptomatic anemia Status: Acute Brief Hospital Course Allergies Allergies Coded Allergies Type Severity Reaction Last Updated Verified No Known Drug Allergies 05/19/16 No Vital Signs Vital Signs Date Time Temp Pulse Resp B/P Pulse Ox O2 Delivery O2 Flow Rate FiO2 05/20/16 11:13 98.3 85 19 141/68 97 Room Air 98.3 Lab Results Laboratory Tests Test 05/18/16 18:00 05/18/16 18:30 05/19/16 06:40 05/19/16 07:48 Urine Collection Type Unknown Urine Color Yellow Urine Clarity Clear Urine pH 5.5 Urine Specific [place] 1.015 Urine Protein Tracemg/dL (NEG-TRACE) Urine Glucose (UA) Negativemg/dL (NEG) Urine Ketones (Stick) Negativemg/dL (NEG) Urine Blood Negative (NEG) Urine Nitrite Negative (NEG) Urine Bilirubin Negative (NEG) Urine Urobilinogen Dipstick 0.2mg/dL (0.2 mg/dL) Urine Leukocyte Esterase Small (NEG) Urine RBC Occ/HPF (0-2) Urine WBC 5-10/HPF (0-4) Urine Squamous Epithelial Cells Few/LPF Urine Bacteria 0/HPF (0-FEW) Urine Mucus Slight/LPF White Blood Count 5.9x10^3/uL (4.0-11.0) 4.6x10^3/uL (4.0-11.0) Red Blood Count 2.88x10^6/uL (3.50-5.40) 3.79x10^6/uL (3.50-5.40) Hemoglobin 5.9g/dL (12.0-15.5) 8.7g/dL (12.0-15.5) Hematocrit 20.1% (36.0-47.0) 28.7% (36.0-47.0) Mean Corpuscular Volume 70fL (79-100) 76fL (79-100) Mean Corpuscular Hemoglobin 20pg (25-35) 23pg (25-35) Mean Corpuscular Hemoglobin Concent 29g/dL (31-37) 31g/dL (31-37) Red Cell Distribution Width 20.3% (11.5-14.5) 23.9% (11.5-14.5) Platelet Count 452x10^3/uL (140-400) 384x10^3/uL (140-400) Neutrophils (%) (Auto) 56% (31-73) 57% (31-73) Lymphocytes (%) (Auto) 28% (24-48) 26% (24-48) Monocytes (%) (Auto) 12% (0-9) 13% (0-9) Eosinophils (%) (Auto) 1% (0-3) 2% (0-3) Basophils (%) (Auto) 3% (0-3) 2% (0-3) Neutrophils # (Auto) 3.3x10^3uL (1.8-7.7) 2.6x10^3uL (1.8-7.7) Lymphocytes # (Auto) 1.6x10^3/uL (1.0-4.8) 1.2x10^3/uL (1.0-4.8) Monocytes # (Auto) 0.7x10^3/uL (0.0-1.1) 0.6x10^3/uL (0.0-1.1) Eosinophils # (Auto) 0.1x10^3/uL (0.0-0.7) 0.1x10^3/uL (0.0-0.7) Basophils # (Auto) 0.2x10^3/uL (0.0-0.2) 0.1x10^3/uL (0.0-0.2) Platelet Estimate Increased (ADEQUATE) Polychromasia Slight Anisocytosis Slight Target Cells Mod Prothrombin Time 13.3SEC (11.7-14.0) Prothromb Time International Ratio 1.1 (0.8-1.1) Sodium Level 142mmol/L (136-145) 138mmol/L (136-145) Potassium Level 4.4mmol/L (3.5-5.1) 4.0mmol/L (3.5-5.1) Chloride Level 105mmol/L (98-107) 107mmol/L (98-107) Carbon Dioxide Level 23mmol/L (21-32) 24mmol/L (21-32) Anion Gap 14 (6-14) 7 (6-14) Blood Urea Nitrogen 9mg/dL (7-20) 5mg/dL (7-20) Creatinine 0.9mg/dL (0.6-1.0) 0.7mg/dL (0.6-1.0) Estimated GFR (Cockcroft-Gault) 60.6 80.9 BUN/Creatinine Ratio 10 (6-20) 7 (6-20) Glucose Level 133mg/dL (70-99) 107mg/dL (70-99) Calcium Level 8.3mg/dL (8.5-10.1) 8.0mg/dL (8.5-10.1) Total Bilirubin 0.3mg/dL (0.2-1.0) 0.6mg/dL (0.2-1.0) Aspartate Amino Transf (AST/SGOT) 14U/L (15-37) 11U/L (15-37) Alanine Aminotransferase (ALT/SGPT) 12U/L (14-59) 6U/L (14-59) Alkaline Phosphatase 45U/L (46-116) 44U/L (46-116) Total Protein 6.2g/dL (6.4-8.2) 6.1g/dL (6.4-8.2) Albumin 3.4g/dL (3.4-5.0) 3.0g/dL (3.4-5.0) Albumin/Globulin Ratio 1.2 (1.0-1.7) 1.0 (1.0-1.7) Glucose (Fingerstick) 113mg/dL (70-99) Test 05/19/16 11:42 05/19/16 16:55 05/19/16 20:39 05/20/16 04:55 Glucose (Fingerstick) 109mg/dL (70-99) 230mg/dL (70-99) 146mg/dL (70-99) Hemoglobin 9.7g/dL (12.0-15.5) Hematocrit 31.7% (36.0-47.0) Mean Corpuscular Hemoglobin Concent 31g/dL (31-37) Sodium Level 140mmol/L (136-145) Potassium Level 4.2mmol/L (3.5-5.1) Chloride Level 106mmol/L (98-107) Carbon Dioxide Level 26mmol/L (21-32) Anion Gap 8 (6-14) Blood Urea Nitrogen 8mg/dL (7-20) Creatinine 0.8mg/dL (0.6-1.0) Estimated GFR (Cockcroft-Gault) 69.4 Glucose Level 147mg/dL (70-99) Calcium Level 8.2mg/dL (8.5-10.1) Test 05/20/16 07:15 05/20/16 10:22 Glucose (Fingerstick) 131mg/dL (70-99) 165mg/dL (70-99) Laboratory Tests Test 05/19/16 16:55 05/19/16 20:39 05/20/16 04:55 05/20/16 07:15 Glucose (Fingerstick) 230mg/dL (70-99) 146mg/dL (70-99) 131mg/dL (70-99) Hemoglobin 9.7g/dL (12.0-15.5) Hematocrit 31.7% (36.0-47.0) Mean Corpuscular Hemoglobin Concent 31g/dL (31-37) Sodium Level 140mmol/L (136-145) Potassium Level 4.2mmol/L (3.5-5.1) Chloride Level 106mmol/L (98-107) Carbon Dioxide Level 26mmol/L (21-32) Anion Gap 8 (6-14) Blood Urea Nitrogen 8mg/dL (7-20) Creatinine 0.8mg/dL (0.6-1.0) Estimated GFR (Cockcroft-Gault) 69.4 Glucose Level 147mg/dL (70-99) Calcium Level 8.2mg/dL (8.5-10.1) Test 05/20/16 10:22 Glucose (Fingerstick) 165mg/dL (70-99) Brief Hospital Course Ms. Gomez is a 80 old female admitted for symptomatic anemia if hgb 5 plus, Transfused, EGD done shows non erosive gastritis, No bleeding ulcer. Hgb upon dc 9 plus, hemodynamically stable. NOt on ASA or NSAIDs at home, Advised, heavy, education and counselling done, Rx protonix 40 PO qD, also already on ferrous sulfate qdaily Consults: GI proc: EGD Dispo; Home Rx PPI Pt seen and examined. dc time 32 mins > 50% education Discharge Information Condition at Discharge: Improved, Stable Disposition/Orders: D/C to Home Scheduled Albuterol Sulfate (Ventolin Hfa Inhaler) 1 PUFF INH Q4HRS Amlodipine Besylate (Amlodipine Besylate) 10 MG PO DAILY (Reported) Ferrous Sulfate (Ferrous Sulfate) 1 TAB PO DAILY (Reported) Fluticasone/Salmeterol (Advair 250-50 Diskus) 1 PUFF INH [id number] Glipizide (Glipizide) 1 TAB PO BIDACBL (Reported) Loratadine (Loratadine) 1 TAB PO DAILY (Reported) Losartan Potassium (Losartan Potassium) 100 MG PO DAILY (Reported) Metformin Hcl (Metformin Hcl) 500 MG PO BIDWMEALS (Reported) Scheduled PRN Omeprazole (Omeprazole) 1 TAB PO PRN PRN PRN INDIGESTION (Reported) Miscellaneous Medications Calcium Carbonate (Calcium Carbonate) 1,500 MG PO (Reported) STELLA ECHEVARRIA MD May 20, 2016 12:35
--- NOTE | 2016-05-20 13:32 | PDOC ---
Subjective: Subjective: Feeling much better, DC in progress. No bleeding, no pain. Objective: Objective: D/w RN this morning - IV fell out, okay to use PO PPI. Vital Signs: Vital Signs Date Time Temp Pulse Resp B/P Pulse Ox O2 Delivery O2 Flow Rate FiO2 05/20/16 11:13 98.3 85 19 141/68 97 Room Air 98.3 Labs: Laboratory Tests Test 05/19/16 16:55 05/19/16 20:39 05/20/16 07:15 05/20/16 10:22 Glucose (Fingerstick) 230mg/dL (70-99) 146mg/dL (70-99) 131mg/dL (70-99) 165mg/dL (70-99) Imaging: EGD 05/19/16: medium sized hiatal hernia PE: GEN: NAD LUNGS: CTAB HEART: RRR ABD: NABS, S/ND/NT NEURO/PSYCH: A & O 3 A/P: ELYSE -history of -EGD 03/2016 colonoscopy 07/2015 unrevealing -- Continue iron, monitor blood counts w/ PCP. Follow-up if (SBS vs capsule endoscopy) if unable to maintain blood counts. SHEREEN BERG May 20, 2016 13:32
[2016-05-21] MEDS ORDERED: PANTOPRAZOLE 40 MG TABLET. PO SCH (07:30)
== END 2016-05-20 13:44 | disposition home or self-care (01) | DRG 812 ==
LOC: ER 17:12 → 5 NORTH 18:50
PROVIDERS: ADMIT Internal Medicine; ATTEND Internal Medicine
PROC: 30233N1 Transfusion of Nonautologous Red Blood Cells into Peripheral Vein, Percutaneous Approach (ICD-10-PCS; 2016-05-19)
PROC: 0DJ08ZZ Inspection of Upper Intestinal Tract, Via Natural or Artificial Opening Endoscopic (ICD-10-PCS; principal; 2016-05-19 14:00)
DX: D62 Acute posthemorrhagic anemia (principal); K29.70 Gastritis, unspecified, without bleeding; D50.9 Iron deficiency anemia, unspecified; E11.9 Type 2 diabetes mellitus without complications; E78.5 Hyperlipidemia, unspecified; F32.9 Major depressive disorder, single episode, unspecified; I10 Essential (primary) hypertension; J44.9 Chronic obstructive pulmonary disease, unspecified; J45.909 Unspecified asthma, uncomplicated; K21.9 Gastro-esophageal reflux disease without esophagitis; K44.9 Diaphragmatic hernia without obstruction or gangrene
CPT/HCPCS: 36415; 80048; 80053; 81001; 82947; 85007; 85014; 85018; 85027; 85610; 86850; 86900; 86901; 86920; 87086; 94250; 94760; C9113; J2704; J7120; P9016; 99285-25

== ENCOUNTER 2019-08-09 18:19 | Emergency (ER) | payer SELFPAY ==
[~2019-08-09] VITALS: Ht 152.4 cm; Wt 68.1 kg
[~2019-08-09 18:19] MED LIST changes: -AMLO10TA2 PO; +AMLO10TA8 PO; +AMLO2.5T2 PO; +AMOX1TAB11 PO; +AMOX1TAB61 PO; +AZIT250T6 PO; +CALC-530 PO; +DOXY100C14 PO; +DOXY100C2 PO; -FERR-26 PO; +FERR325T14 PO; +IPRA3AMP29 NEB; +LORA10TA3 PO; +LOSA-73 PO; +LOSA25TA54 PO; -LOSA50TA6 PO; +METF10007 PO; +METF500T16 PO; -METF500T4 PO; +Nicotine 21MG TD; +OMEP20TA8 PO; +PANT40TA77 PO; +PRED-220 PO; +PROVENTIL HFA6.7 GM IH; +UMEC62.5 IH; +[UNRECOGNIZED DRUG - REMARK]; +ferrous sulfate; +guaiFENesin/CODEINE 100mg/10mg PO
[2019-08-09 18:35] VITALS: BP 173/84
[2019-08-09] MEDS ORDERED: BENZ9GEL3 MM (18:39)
--- NOTE | 2019-08-09 18:40 | PHYS DOC ---
Past Medical History Past Medical History: Bronchitis, COPD, Diabetes-Type II, Hypertension Past Surgical History: Cholecystectomy, Other Additional Past Surgical Histo: hernia repair Smoking Status: Current Every Day Smoker Alcohol Use: None Drug Use: None Adult General Chief Complaint Chief Complaint: OTHER COMPLAINTS [facility] HPI Patient is a 83 year old female who presents with oral ulcers have been ongoing for 3 days. Patient tried rubbing alcohol which do not help. Patient presents due to pain in her mouth. Complete ROS were reviewed and found to be within normal limits, except as documented in the HPI Allergies Allergies Allergies Coded Allergies Type Severity Reaction Last Updated Verified No Known Drug Allergies 05/19/16 No Physical Exam Physical Exam Constitutional: Well developed, well nourished, no acute distress, non-toxic appearance. [] HENT: Normocephalic, atraumatic, 3 oral ulcer noted in mouth. Psychologic: Affect normal, judgement normal, mood normal. [] EKG EKG [] Radiology/Procedures Radiology/Procedures [] Course & Med Decision Making Course & Med Decision Making Pertinent Labs and Imaging studies reviewed. (See chart for details) [] Dragon Disclaimer Dragon Disclaimer This electronic medical record was generated, in whole or in part, using a voice recognition dictation system. Departure Departure Impression: Primary Impression: Oral mucositis (ulcerative), unspecified Disposition: 01 HOME, SELF-CARE Condition: STABLE Referrals: NO PCP (PCP) Patient Instructions: Oral Ulcers Additional Instructions: Thank you for visiting [facility]. We appreciate you trusting us with your care. If any additional problems come up don't hesitate to return to visit us. Please follow up with your primary care provider so they can plan additional care if needed and know about the problem that you had. If symptoms worsen come back to the Emergency Department. Any concerning symptoms that start such as chest pain, shortness of air, weakness or numbness on one side of the body, running high fevers or any other concerning symptoms return to the ER. Scripts Benzocaine (ORAL ANALGESIC) 9 Gm Gel..gram. 9 GM MM PRN Q3HRS PRN for PAIN for 10 Days, #1 EACH apply with cotton applicator directly to site. Prov: VERO REES APRN 08/09/19 VERO REES APRN Aug 09, 2019 18:39
== END 2019-08-09 18:59 | disposition home or self-care (01) ==
LOC: ER 18:19
DX: K12.30 Oral mucositis (ulcerative), unspecified (principal); J44.9 Chronic obstructive pulmonary disease, unspecified; E11.9 Type 2 diabetes mellitus without complications; I10 Essential (primary) hypertension; F17.200 Nicotine dependence, unspecified, uncomplicated; Z90.49 Acquired absence of other specified parts of digestive tract; Z98.890 Other specified postprocedural states
CPT/HCPCS: 99282

== ENCOUNTER 2021-09-14 10:46 | Inpatient (IN) | payer OTHER ==
[~2021-09-14] VITALS: Ht 165.1 cm; Wt 46.5 kg
[~2021-09-14 10:46] MED LIST changes: +AMLO-187 PO; -AMLO10TA8 PO; +BENZ9GEL3 MM; +DEXA6TAB PO; +DOXY-181 PO; -DOXY100C14 PO; -DOXY100C2 PO; +DOXY100C3 PO; +FAMO20TA5 PO; +FLUT12AE IH; +IBUP-1007 PO; +LOSA100T14 PO; -OMEP20TA8 PO; +OMEP20TA91 PO
[2021-09-14] MEDS ORDERED: IPRATRPIUM/ALBUTEROL 0.5/2.5MG 3 ML NEBU. NEB ONE ×2 (12:00→12:15)
--- NOTE | 2021-09-14 12:05 | PHYS DOC ---
Past Medical History Past Medical History: Bronchitis, COPD, Diabetes-Type II, Hypertension Past Surgical History: Cholecystectomy, Other Additional Past Surgical Histo: hernia repair Smoking Status: Current Every Day Smoker Alcohol Use: None Drug Use: None General Adult EDM: Chief Complaint: SHORTNESS OF BREATH HPI: HPI: Patient is an 85-year-old female who presents today with increased shortness of breath. Patient is Maltese-speaking only all information obtained during the HPI and review of systems interpretive services was used for. According to the patient she has been feeling increased shortness of breath since Tuesday, and today the symptoms has worsened and she called her doctor and they told her to come to the emergency department. Patient still continues to smoke with a history of emphysema and diabetes. Patient's initial sats were 88% nursing staff did place the patient on 2 L nasal cannula which brought her sats up to 91%. Patient denies chest pain or fever and chills. Review of Systems: Review of Systems: Constitutional: Denies fever or chills. [] Eyes: Denies change in visual acuity. [] HENT: Denies nasal congestion or sore throat. [] Respiratory: cough or shortness of breath. [] Cardiovascular: Denies chest pain or edema. [] GI: Denies abdominal pain, nausea, vomiting, bloody stools or diarrhea. [] : Denies dysuria. [] Musculoskeletal: Denies back pain or joint pain. [] Integument: Denies rash. [] Neurologic: Denies headache, focal weakness or sensory changes. [] Endocrine: Denies polyuria or polydipsia. [] Lymphatic: Denies swollen glands. [] Psychiatric: Denies depression or anxiety. [] Heart Score: C/O Chest Pain: No Risk Factors: Risk Factors: DM, Current or recent (<one month) smoker, HTN, HLP, family history of CAD, obesity. Risk Scores: Score 0 - 3: 2.5% MACE over next 6 weeks - Discharge Home Score 4 - 6: 20.3% MACE over next 6 weeks - Admit for Clinical Observation Score 7 - 10: 72.7% MACE over next 6 weeks - Early Invasive Strategies Current Medications: Current Medications Medications (Trade) Dose Ordered Sig/Kristen Start Time Stop Time Status Last Admin Dose Admin Albuterol/ Ipratropium (Duoneb) 3 ml 1X ONCE 09/14/21 12:00 09/14/21 12:01 DC Allergies: Allergies: Allergies Coded Allergies Type Severity Reaction Last Updated Verified No Known Drug Allergies 05/19/16 No Physical Exam: PE: Constitutional: Frail elderly female in moderate distress, HENT: Normocephalic, atraumatic, bilateral external ears normal, oropharynx moist, no oral exudates, nose normal. [] Eyes: PERRLA, EOMI, conjunctiva normal, no discharge. [] Neck: Normal range of motion, no tenderness, supple, no stridor. [] Cardiovascular:Heart rate regular rhythm, no murmur [] Lungs & Thorax: Bilateral breath sounds wheezes throughout, increased work of breathing noted Abdomen: Bowel sounds normal, soft, no tenderness, no masses, no pulsatile ma sses. [] Skin: Warm, dry, no erythema, no rash. [] Back: No tenderness, no CVA tenderness. [] Extremities: No tenderness, no cyanosis, no clubbing, ROM intact, no edema. [] Neurologic: Alert and oriented X 3, normal motor function, normal sensory function, no focal deficits noted. [] Psychologic: Affect normal, judgement normal, mood normal. [] Current Patient Data: Labs: Laboratory Tests Test 09/14/21 12:06 09/14/21 12:17 White Blood Count 7.5 x10^3/uL Red Blood Count 3.65 x10^6/uL Hemoglobin 10.9 g/dL Hematocrit 32.9 % Mean Corpuscular Volume 90 fL Mean Corpuscular Hemoglobin 30 pg Mean Corpuscular Hemoglobin Concent 33 g/dL Red Cell Distribution Width 19.0 % Platelet Count 391 x10^3/uL Neutrophils (%) (Auto) 77 % Lymphocytes (%) (Auto) 10 % Monocytes (%) (Auto) 9 % Eosinophils (%) (Auto) 3 % Basophils (%) (Auto) 1 % Neutrophils # (Auto) 5.7 x10^3/uL Lymphocytes # (Auto) 0.8 x10^3/uL Monocytes # (Auto) 0.6 x10^3/uL Eosinophils # (Auto) 0.3 x10^3/uL Basophils # (Auto) 0.1 x10^3/uL Sodium Level 142 mmol/L Potassium Level 4.3 mmol/L Chloride Level 108 mmol/L Carbon Dioxide Level 25 mmol/L Anion Gap 9 Blood Urea Nitrogen 13 mg/dL Creatinine 1.0 mg/dL Estimated GFR (Cockcroft-Gault) 53.0 BUN/Creatinine Ratio 13 Glucose Level 102 mg/dL Lactic Acid Level 1.1 mmol/L Calcium Level 8.6 mg/dL Total Bilirubin 0.3 mg/dL Aspartate Amino Transf (AST/SGOT) 9 U/L Alanine Aminotransferase (ALT/SGPT) 15 U/L Alkaline Phosphatase 70 U/L Troponin I High Sensitivity 7 ng/L [id number]-Type Natriuretic Peptide 130 pg/mL Total Protein 6.6 g/dL Albumin 3.1 g/dL Albumin/Globulin Ratio 0.9 Influenza Type A Antigen Negative Influenza Type B Antigen Negative SARS-CoV-2 Antigen (Rapid) Negative Current Medications Medications (Trade) Dose Ordered Sig/Kristen Route PRN Reason Start Time Stop Time Status Last Admin Dose Admin Albuterol/ Ipratropium (Duoneb) 3 ml 1X ONCE NEB 09/14/21 12:00 09/14/21 12:01 Cancel Albuterol/ Ipratropium (Duoneb) 3 ml 1X ONCE NEB 09/14/21 12:15 09/14/21 12:16 DC 09/14/21 12:09 Info (CONTRAST GIVEN -- Rx MONITORING) 1 each PRN DAILY PRN MC SEE COMMENTS 09/14/21 12:15 09/16/21 12:14 Iohexol (Omnipaque 350 Mg/ml) 75 ml 1X ONCE IV 09/14/21 13:45 09/14/21 13:46 DC 09/14/21 13:59 Vital Signs: Vital Signs Date Time Temp Pulse Resp B/P (MAP) Pulse Ox O2 Delivery O2 Flow Rate FiO2 09/14/21 16:13 86 18 156/65 (95) 97 Nasal Cannula 2.0 09/14/21 15:43 86 19 142/63 (89) 97 Nasal Cannula 2.0 09/14/21 15:13 92 22 133/60 (84) 95 Nasal Cannula 2.0 09/14/21 14:43 92 20 126/58 (80) 98 Nasal Cannula 2.0 09/14/21 13:32 94 23 120/58 (78) 95 Nasal Cannula 2.0 09/14/21 13:12 92 20 138/60 (86) 96 Nasal Cannula 2.0 09/14/21 12:52 96 136/60 (85) 97 Nasal Cannula 2.0 09/14/21 12:32 94 131/60 (83) 97 Nasal Cannula 2.0 09/14/21 12:12 98 19 118/57 (77) 94 Nasal Cannula 2.0 09/14/21 12:10 95 Nasal Cannula 2.0 09/14/21 11:52 106 134/60 (84) Nasal Cannula 2.0 09/14/21 11:40 99.2 110 20 188/61 (103) 88 Room Air 99.2 Vital Signs Date Time Temp Pulse Resp B/P (MAP) Pulse Ox O2 Delivery O2 Flow Rate FiO2 09/14/21 11:40 99.2 110 20 188/61 (103) 88 Room Air 99.2 EKG: EKG: EKG done at [address] Lopez at 1205 shows sinus tachycardia at a rate of 101 with no ectopy ND interval 136 ms with a QTC of 426 ms no STEMI [] Radiology/Procedures: Radiology/Procedures: [REASON: SOA PROCEDURE: PORTABLE CHEST 1V EXAMINATION: XR CHEST 1V CLINICAL HISTORY: Shortness of breath. EXAM DATE/TIME: 09/14/2021 12:17 PM COMPARISON: 05/09/2021 FINDINGS: Lines, Tubes, and Devices: None. Cardiomediastinal Silhouette: Normal heart size. Aortic atherosclerotic calcification. Lungs and Pleura: No evidence of focal airspace consolidation or pleural effusion. Nonspecific mild interstitial prominence, similar prior study and possibly chronic. Bones and Soft Tissues: Degenerative changes in the thoracic spine. IMPRESSION: No definitive evidence of acute cardiopulmonary abnormality or significant interval change. Electronically signed by: Samuel Cha DO (09/14/2021 1:06 PM) [facility] ] Course & Med Decision Making: Course & Med Decision Making Pertinent Labs and Imaging studies reviewed. (See chart for details) [id number] Suh regarding this patient, he is agreeable to admitting this patient for further evaluation and management of her exacerbation of COPD and the need for oxygen. I did speak to family and the patient and they are agreeable to admission. Dragon Disclaimer: Dragon Disclaimer: This electronic medical record was generated, in whole or in part, using a voice recognition dictation system. Departure Departure Impression: Primary Impression: COPD exacerbation Additional Impression: Hypoxia Disposition: ADMITTED INPATIENT Admitting Physician: AIDEN Condition: STABLE Referrals: VERO VERNON MD (PCP) BASHIR DU APRN September 14, 2021 12:05
[2021-09-14] MEDS ORDERED: CONTRAST GIVEN. MC PRN (12:15)
[2021-09-14 12:20] LABS: BASO # 0.1 x10^3/uL (0.0-0.2); BASO % 1 % (0-3); EOS # 0.3 x10^3/uL (0.0-0.7); EOS % 3 % (0-3); HEMATOCRIT 32.9 % (36.0-47.0); HEMOGLOBIN 10.9 g/dL (12.0-15.5); LYMPH # 0.8 x10^3/uL (1.0-4.8); LYMPH % 10 % (24-48); MEAN CORPUSCULAR HEMOGLOBIN 30 pg (25-35); MEAN CORPUSCULAR HGB CONC 33 g/dL (31-37); MEAN CORPUSCULAR VOLUME 90 fL (79-100); MONO # 0.6 x10^3/uL (0.0-1.1); MONO % 9 % (0-9); NEUT # 5.7 x10^3/uL (1.8-7.7); NEUT % 77 % (31-73); PLATELET COUNT 391 x10^3/uL (140-400); RED BLOOD COUNT 3.65 x10^6/uL (3.50-5.40); WHITE BLOOD COUNT 7.5 x10^3/uL (4.0-11.0)
[2021-09-14 12:40] LABS: CALCIUM 8.6 mg/dL (8.5-10.1); POTASSIUM 4.3 mmol/L (3.5-5.1)
[2021-09-14 12:45] LABS: INFLUENZA A PATIENT NEGATIVE (NEGATIVE); INFLUENZA B PATIENT NEGATIVE (NEGATIVE)
[2021-09-14 12:54] LABS: ALBUMIN 3.1 g/dL (3.4-5.0); ALBUMIN/GLOBULIN RATIO 0.9 (1.0-1.7); TOTAL BILIRUBIN 0.3 mg/dL (0.2-1.0); TOTAL PROTEIN 6.6 g/dL (6.4-8.2)
--- NOTE | 2021-09-14 13:09 | RAD ---
EXAMINATION: XR CHEST 1V CLINICAL HISTORY: Shortness of breath. EXAM DATE/TIME: 09/14/2021 12:17 PM COMPARISON: 05/09/2021 FINDINGS: Lines, Tubes, and Devices: None. Cardiomediastinal Silhouette: Normal heart size. Aortic atherosclerotic calcification. Lungs and Pleura: No evidence of focal airspace consolidation or pleural effusion. Nonspecific mild i nterstitial prominence, similar prior study and possibly chronic. Bones and Soft Tissues: Degenerative changes in the thoracic spine. IMPRESSION: No definitive evidence of acute cardiopulmonary abnormality or significant interval change. Electronically signed by: Samuel Cha DO (09/14/2021 1:06 PM) KWAME
[2021-09-14] MEDS ORDERED: IOHEXOL 350 MG/ML 100 ML VIAL. IV ONE (13:45)
[2021-09-14] MEDS ORDERED: methylPREDNISolone SOD SUCC PF 125 MG/2 ML VIAL. IV ONE (14:45)
--- NOTE | 2021-09-14 14:59 | EKG ---
[facility] [address] [place] [address] Test Date: 2021-09-14 Test Time: 12:02:07 Pat Name: EMANI REBOLLAR Department: Room: Gender: F Strategic Planning Consultant: : 1935 Requested By: BASHIR DU Order Number: [id number] Reading MD: Aaron Dozier Measurements Intervals Mitchell Rate: 101 P: 80 [place]: 136 QRS: 76 QRSD: 72 T: 80 QT: 328 QTc: 426 Interpretive Statements SINUS TACHYCARDIA Electronically Signed On 09-16-2021 17:17:38 CDT by Aaron Dozier
--- NOTE | 2021-09-14 15:17 | RAD ---
Examination: CT angiography chest with IV contrast HISTORY: History of shortness of breath COMPARISON: None available TECHNIQUE: Axial CT angiographic images of chest were performed with IV contrast. Coronal and sagitta l 3-D MIP reformats are performed Exposure: One or more of the following individualized dose reduction techniques were utilized for thi s examination: 1. Automated exposure control 2. Adjustment of the mA and/or kV according to patient size 3. Use of iterative reconstruction technique FINDINGS: There is a 2.5 cm hypodense nodule identified in the right lobe of the thyroid gland.. The central ai rways are patent. Heart size grossly appears unremarkable. Trace pericardial effusion. Coronary arter y calcifications. The caliber of the aorta grossly appears unremarkable. Moderate aortic atherosclero sis. There is no evidence of filling defect identified in the main pulmonary arterial trunk and right and left main pulmonary arteries and the visualized lobar, segmental and the pulmonary arteries. The re is a 1.2 cm groundglass nodule left lingula of the lung. Faint airspace opacities identified upper lobe of the lung likely atelectasis or infiltrates with 4 mm nodule right apical lung. There is a 6. 5 mm nodule right upper lobe of the lung. Mild emphysematous changes identified in the lungs. The liver, spleen, adrenals grossly appears unremarkable Moderate degenerative changes thoracic spine. IMPRESSION: 1. No evidence of pulmonary embolism. 2. 1.2 cm groundglass nodule identified in the left lingula of the lung. Per Fleischner Society [facility], initial follow-up in 3-6 months is recommended. 3. 6.5 mm nodule right upper lobe of the lung. 4. 2.5 cm hypodense nodule identified in the right lobe of the thyroid gland. Recommend follow-up no nemergent ultrasound thyroid. 5. Faint airspace opacities identified upper lobe of the lung likely atelectasis or infiltrates with 4 mm nodule right apical lung. Electronically signed by: Neil Montez MD (09/14/2021 3:14 PM) [id number]
[2021-09-14 16:40] VITALS: BP 149/55
[2021-09-14] MEDS ORDERED: ALBUTEROL SULFATE 2.5 MG/3 ML NEBU. NEB PRN (17:00)
[2021-09-14] MEDS ORDERED: ONDANSETRON PF 4 MG/2 ML VIAL. IVP PRN (17:00)
[2021-09-14] MEDS ORDERED: guaiFENesin DM 200MG/20MG 10 ML SYRUP PO PRN (17:00)
[2021-09-14] MEDS ORDERED: ONDANSETRON ODT 4 MG TAB.RAPDIS. PO PRN (17:00)
[2021-09-14] MEDS ORDERED: NICOTINE 21MG PATCH. TD PRN (17:00)
[2021-09-14] MEDS ORDERED: traMADol 50 MG TABLET PO PRN (17:00)
[2021-09-14] MEDS ORDERED: DEXTROSE 50% 25 GM / 50ML DISP.SYRIN. IV PRN (17:00)
[2021-09-14] MEDS ORDERED: ACETAMINOPHEN 325 MG TABLET. PO PRN (17:00)
[2021-09-14] MEDS ORDERED: SODIUM CHLORIDE 0.65% NASAL SPRAY 45ML BOTTLE. NS PRN (17:00)
[2021-09-14] MEDS ORDERED: hydrALAZINE 20 MG/ML VIAL. IVP PRN (17:00)
--- NOTE | 2021-09-14 17:05 | PDOC1 ---
History and Physical Date of Admission Date of Admission DATE: 09/14/21 TIME: 16:51 Identification/Chief Complaint Chief Complaint sob, cough Source Source: Caregiver, Patient History of Present Illness History of Present Illness Ms Gomez is an 85 year old female with history of diabetes type 2, hypertension, COPD current smoker, bronchitis, who presents the ED today to be evaluated for shortness of breath for 2 days cough rhinitis and shortness of breath. Denies chest pain, abdominal pain, diarrhea, sick contacts or loss of smell. Continues to smoke a little bit every day 1-5 cigarettes. Translation services through [employer] and granddaughter who is bilingual bedside. Labs with WBC 7.5, Hb 10.9, platelets 391, NA 142, K4.3, BUN 13, CR 1, glucose 102, lactic acid 1.1, calcium 8.6, bilirubin 0.3, AST 9, ALT 15, alkaline phosphatase 70, albumin 3.1, NT proBNP 130, high-sensitivity troponin is 7, rapid COVID-19 negative, rapid influenza negative. EKG sinus tachycardia rate 101 bpm normal axis and intervals, QTC [address] elevations or TWI. Chest radiograph with mild interstitial prominence lobe consolidation noted. Du e to tachycardia and hypoxia history of bronchitis she underwent CTPA which was negative for pulmonary embolism did note a 1.2 cm left lingular nodule and a 6.5 mm nodule right upper lobe and a 2.5 cm right thyroid nodule and interstitial opacities upper lobes worse on the right. Placed on O2 given aggressive nebulizer treatments still requiring O2 admitted for further care. Past Medical History Cardiovascular: HTN, Hyperlipidemia Pulmonary: COPD, Pneumonia GI: GERD Heme/Onc: Anemia NOS Psych: Depression Musculoskeletal: Osteoarthritis Endocrine: Diabetes Past Surgical History Past Surgical History: Cholecystectomy, Hernia Repair Family History Family History: Hypertension Social History Smoke: <1 pack per day ALCOHOL: none Drugs: None Current Problem List Problem List Problems Medical Problems: (1) COPD exacerbation Status: Acute Current Medications Current Medications Current Medications Albuterol/ Ipratropium (Duoneb) 3 ml 1X ONCE NEB ; Start 09/14/21 at 12:00; Stop 09/14/21 at 12:01; Status Cancel Albuterol/ Ipratropium (Duoneb) 3 ml 1X ONCE NEB Last administered on 09/14/21at 12:09; Start 09/14/21 at 12:15; Stop 09/14/21 at 12:16; Status DC Info (CONTRAST GIVEN -- Rx MONITORING) 1 each PRN DAILY PRN MC SEE COMMENTS; Start 09/14/21 at 12:15; Stop 09/16/21 at 12:14 Iohexol (Omnipaque 350 Mg/ml) 75 ml 1X ONCE IV Last administered on 09/14/21at 13:59; Start 09/14/21 at 13:45; Stop 09/14/21 at 13:46; Status DC Methylprednisolone Sodium Succinate (SOLU-Medrol 125MG VIAL) 125 mg 1X ONCE IV Last administered on 09/14/21at 14:58; Start 09/14/21 at 14:45; Stop 09/14/21 at 14:47; Status DC Active Scripts Active Dexamethasone 6 Mg Tablet 6 Mg PO DAILY 7 Days Norvasc (Amlodipine Besylate) 2.5 Mg Tablet 1 Tab PO DAILY Duoneb 0.5-3(2.5) Mg/3 Ml (Albuterol/Ipratropium) 3 Ml Ampul.neb 3 Ml NEB QID PRN 30 Days Ventolin Hfa Inhaler (Albuterol Sulfate) 18 Gm Hfa.aer.ad 1 Puff INH Q4HRS Reported Flovent 110MCG Hfa (Fluticasone Propionate) 12 Gm Aer.w.adap 2 Puff IH BID Losartan Potassium 100 Mg Tablet 100 Mg PO DAILY Protonix (Pantoprazole Sodium) 40 Mg Tablet.dr 40 Mg PO DAILYAC Ferrous Sulfate 325 Mg Tablet 1 Tab PO TID Metformin Hcl 500 Mg Tablet 500 Mg PO BIDWMEALS Allergies Allergies: Coded Allergies: No Known Drug Allergies (Unverified , 05/19/16) ROS General: YES: Fatigue, Malaise; No: Chills, Night Sweats, Appetite, Other PSYCHOLOGICAL ROS: No: Anxiety, Behavioral Disorder, Concentration difficultie, Decreased libido, Depression, Disorientation, Hallucinations, Hostility, Irritablity, Memory difficulties, Mood Swings, Obsessive thoughts, Physical abuse, Sexual abuse, Sleep disturbances, Suicidal ideation, Other Eyes: No Blurry vision, No Decreased vision, No Double vision, No Dry eyes, No Excessive tearing, No Eye Pain, No Itchy Eyes, No Loss of vision, No Photophobia, No Scotomata, No Uses contacts, No Uses glasses, No Other HEENT: YES: Nasal congestion, Nasal discharge; No: Heacaches, Visual Changes, Hearing change, Oral lesions, Sinus pain, Sore Throat, Epistaxis, Sneezing, Snoring, Tinnitus, Vertigo, Vocal changes, Other ALLERGY AND IMMUNOLOGY: No: Hives, Insect Bite Sensitivity, Itchy/Watery Eyes, Nasal Congestion, Post Nasal Drip, Seasonal Allergies, Other Hematological and Lymphatic: No: Bleeding Problems, Blood Clots, Blood Transfusions, Brusing, Night Sweats, Pallor, Swollen Lymph Nodes, Other ENDOCRINE: No: Breast Changes, Galactorrhea, Hair Pattern Changes, Hot Flashes, Malaise/lethargy, Mood Swings, Palpitations, Polydipsia/polyuria, Skin Changes, Temperature Intolerance, Unexpected Weight Changes, Other Breast: No New/Changing Breast Lumps, No Nipple changes, No Nipple discharge, No Other Respiratory: YES: Cough, Shortness of breath, SOB with excertion, Tachypnea, Wheezing; No: Hemoptysis, Orthopnea, Pleuritic Pain, Sputum Changes, Stridor, Other Cardiovascular: No Chest Pain, No Palpitations, No Orthopnea, No Paroxysmal Noc. Dyspnea, No Edema, No Lt Headedness, No Other Gastrointestinal: No Nausea, No Vomiting, No Abdominal Pain, No Diarrhea, No Constipation, No Melena, No Hematochezia, No Other Genitourinary: No Dysuria, No Frequency, No Incontinence, No Hematuria, No Retention, No Discharge, No Urgency, No Pain, No Flank Pain, No Other, No , No , No , No , No , No , No Musculoskeletal: No Gait Disturbance, No Joint Pain, No Joint Stiffness, No Joint Swelling, No Muscle Pain, No Muscular Weakness, No Pain In:, No Swelling In:, No Other Neurological: No Behavorial Changes, No Bowel/Bladder ControlChng, No Confusion, No Dizziness, No Gait Disturbance, No Headaches, No Impaired Coord/balance, No Memory Loss, No Numbness/Tingling, No Seizures, No Speech Problems, No Tremors, No Visual Changes, No Weakness, No Other Skin: No Dry Skin, No Eczema, No Hair Changes, No Lumps, No Mole Changes, No Mottling, No Nail Changes, No Pruritus, No Rash, No Skin Lesion Changes, No Other, No Acne Physical Exam General: Alert, Oriented X3, Cooperative, moderate distress HEENT: Atraumatic, PERRLA, EOMI, Mucous membr. moist/pink, Other (Glasses in place) Lungs: Other (Diffuse scattered wheezes and prolonged expiratory phase bilaterally) Heart: S1S2, RRR, no thrills, no rubs, no gallops, no murmurs Abdomen: Normal bowel sounds, Soft, No tenderness, No hepatosplenomegaly, No masses Rectal Exam: not examined Extremities: No clubbing, No cyanosis, No edema, Normal pulses, No tenderness/swelling Skin: No rashes, No breakdown, No significant lesion Neuro: Normal gait, Normal speech, Strength at 5/5 X4 ext, Normal tone, Sensation intact, Cranial nerves 3-12 NL, Reflexes 2+ Psych/Mental Status: Mental status NL, Mood NL Vitals Vitals Vital Signs Date Time Temp Pulse Resp B/P (MAP) Pulse Ox O2 Delivery O2 Flow Rate FiO2 09/14/21 15:43 86 19 142/63 (89) 97 Nasal Cannula 2.0 09/14/21 11:40 99.2 99.2 Labs Labs Laboratory Tests Test 09/14/21 12:06 09/14/21 12:17 White Blood Count 7.5 x10^3/uL (4.0-11.0) Red Blood Count 3.65 x10^6/uL (3.50-5.40) Hemoglobin 10.9 g/dL (12.0-15.5) Hematocrit 32.9 % (36.0-47.0) Mean Corpuscular Volume 90 fL (79-100) Mean Corpuscular Hemoglobin 30 pg (25-35) Mean Corpuscular Hemoglobin Concent 33 g/dL (31-37) Red Cell Distribution Width 19.0 % (11.5-14.5) Platelet Count 391 x10^3/uL (140-400) Neutrophils (%) (Auto) 77 % (31-73) Lymphocytes (%) (Auto) 10 % (24-48) Monocytes (%) (Auto) 9 % (0-9) Eosinophils (%) (Auto) 3 % (0-3) Basophils (%) (Auto) 1 % (0-3) Neutrophils # (Auto) 5.7 x10^3/uL (1.8-7.7) Lymphocytes # (Auto) 0.8 x10^3/uL (1.0-4.8) Monocytes # (Auto) 0.6 x10^3/uL (0.0-1.1) Eosinophils # (Auto) 0.3 x10^3/uL (0.0-0.7) Basophils # (Auto) 0.1 x10^3/uL (0.0-0.2) Sodium Level 142 mmol/L (136-145) Potassium Level 4.3 mmol/L (3.5-5.1) Chloride Level 108 mmol/L (98-107) Carbon Dioxide Level 25 mmol/L (21-32) Anion Gap 9 (6-14) Blood Urea Nitrogen 13 mg/dL (7-20) Creatinine 1.0 mg/dL (0.6-1.0) Estimated GFR (Cockcroft-Gault) 53.0 BUN/Creatinine Ratio 13 (6-20) Glucose Level 102 mg/dL (70-99) Lactic Acid Level 1.1 mmol/L (0.4-2.0) Calcium Level 8.6 mg/dL (8.5-10.1) Total Bilirubin 0.3 mg/dL (0.2-1.0) Aspartate Amino Transf (AST/SGOT) 9 U/L (15-37) Alanine Aminotransferase (ALT/SGPT) 15 U/L (14-59) Alkaline Phosphatase 70 U/L (46-116) Troponin I High Sensitivity 7 ng/L (4-50) HT-Biy-B-Type Natriuretic Peptide 130 pg/mL (0-449) Total Protein 6.6 g/dL (6.4-8.2) Albumin 3.1 g/dL (3.4-5.0) Albumin/Globulin Ratio 0.9 (1.0-1.7) Influenza Type A Antigen Negative (NEGATIVE) Influenza Type B Antigen Negative (NEGATIVE) SARS-CoV-2 Antigen (Rapid) Negative (NEGATIVE) Laboratory Tests Test 09/14/21 12:06 09/14/21 12:17 White Blood Count 7.5 x10^3/uL (4.0-11.0) Red Blood Count 3.65 x10^6/uL (3.50-5.40) Hemoglobin 10.9 g/dL (12.0-15.5) Hematocrit 32.9 % (36.0-47.0) Mean Corpuscular Volume 90 fL (79-100) Mean Corpuscular Hemoglobin 30 pg (25-35) Mean Corpuscular Hemoglobin Concent 33 g/dL (31-37) Red Cell Distribution Width 19.0 % (11.5-14.5) Platelet Count 391 x10^3/uL (140-400) Neutrophils (%) (Auto) 77 % (31-73) Lymphocytes (%) (Auto) 10 % (24-48) Monocytes (%) (Auto) 9 % (0-9) Eosinophils (%) (Auto) 3 % (0-3) Basophils (%) (Auto) 1 % (0-3) Neutrophils # (Auto) 5.7 x10^3/uL (1.8-7.7) Lymphocytes # (Auto) 0.8 x10^3/uL (1.0-4.8) Monocytes # (Auto) 0.6 x10^3/uL (0.0-1.1) Eosinophils # (Auto) 0.3 x10^3/uL (0.0-0.7) Basophils # (Auto) 0.1 x10^3/uL (0.0-0.2) Sodium Level 142 mmol/L (136-145) Potassium Level 4.3 mmol/L (3.5-5.1) Chloride Level 108 mmol/L (98-107) Carbon Dioxide Level 25 mmol/L (21-32) Anion Gap 9 (6-14) Blood Urea Nitrogen 13 mg/dL (7-20) Creatinine 1.0 mg/dL (0.6-1.0) Estimated GFR (Cockcroft-Gault) 53.0 BUN/Creatinine Ratio 13 (6-20) Glucose Level 102 mg/dL (70-99) Lactic Acid Level 1.1 mmol/L (0.4-2.0) Calcium Level 8.6 mg/dL (8.5-10.1) Total Bilirubin 0.3 mg/dL (0.2-1.0) Aspartate Amino Transf (AST/SGOT) 9 U/L (15-37) Alanine Aminotransferase (ALT/SGPT) 15 U/L (14-59) Alkaline Phosphatase 70 U/L (46-116) Troponin I High Sensitivity 7 ng/L (4-50) ZY-Wfz-T-Type Natriuretic Peptide 130 pg/mL (0-449) Total Protein 6.6 g/dL (6.4-8.2) Albumin 3.1 g/dL (3.4-5.0) Albumin/Globulin Ratio 0.9 (1.0-1.7) Influenza Type A Antigen Negative (NEGATIVE) Influenza Type B Antigen Negative (NEGATIVE) SARS-CoV-2 Antigen (Rapid) Negative (NEGATIVE) Images Images CT angiography chest with IV contrast HISTORY: History of shortness of breath COMPARISON: None available TECHNIQUE: Axial CT angiographic images of chest were performed with IV contrast. Coronal and sagittal 3-D MIP reformats are performed Exposure: One or more of the following individualized dose reduction techniques were utilized for this examination: 1. Automated exposure control 2. Adjustment of the mA and/or kV according to patient size 3. Use of iterative reconstruction technique FINDINGS: There is a 2.5 cm hypodense nodule identified in the right lobe of the thyroid gland.. The central airways are patent. Heart size grossly appears unremarkable. Trace pericardial effusion. Coronary artery calcifications. The caliber of the aorta grossly appears unremarkable. Moderate aortic atherosclerosis. There is no evidence of filling defect identified in the main pulmonary arterial trunk and right and left main pulmonary arteries and the visualized lobar, segmental and the pulmonary arteries. There is a 1.2 cm groundglass nodule left lingula of the lung. Faint airspace opacities identified upper lobe of the lung likely atelectasis or infiltrates with 4 mm nodule right apical lung. There is a 6.5 mm nodule right upper lobe of the lung. Mild emphysematous changes identified in the lungs. The liver, spleen, adrenals grossly appears unremarkable Moderate degenerative changes thoracic spine. IMPRESSION: 1. No evidence of pulmonary embolism. 2. 1.2 cm groundglass nodule identified in the left lingula of the lung. Per Fleischner Society guidelines, initial follow-up in 3-6 months is recommended. 3. 6.5 mm nodule right upper lobe of the lung. 4. 2.5 cm hypodense nodule identified in the right lobe of the thyroid gland. Recommend follow-up nonemergent ultrasound thyroid. 5. Faint airspace opacities identified upper lobe of the lung likely atelectasis or infiltrates with 4 mm nodule right apical lung. VTE Prophylaxis Ordered VTE Prophylaxis Devices: Yes VTE Pharmacological Prophylaxi: Yes Assessment/Plan Assessment/Plan Acute respiratory failure with hypoxia - O2 requirements new, wean as tolerated, treat acute bronchitis/copd Acute copd exacerbation - duonebs, pulmicort, and steroids. Stop smoking. Type 2 Diabetes Mellitus - sliding scale Current smoker - counseled on cessation HTN - cont home meds Bronchitis -as above Anemia of chronic disease FEN - ADA diet PPX - heparin FULL CODE Dispo - inpatient Justifications for Admission Other Justification COVID-19 positive test (U07.1, COVID-19) with Acute Pneumonia (J12.89, Other viral pneumonia) (If respiratory failure or sepsis present, add as separate assessment) PAKO NAVA MD September 14, 2021 17:05
[2021-09-14] MEDS: HEPARIN for SUB-Q USE 5,000 UNIT/ML VIAL. SQ SCH ×2 (18:05→21:30)
[2021-09-14 19:00] VITALS: BP 130/52
[2021-09-14] MEDS: IPRATRPIUM/ALBUTEROL 0.5/2.5MG 3 ML NEBU. NEB SCH (20:45)
[2021-09-14] MEDS: BUDESONIDE 0.5 MG/2 ML NEBU. NEB SCH (20:45)
[2021-09-14] MEDS: methylPREDNISolone SOD SUCC PF 125 MG/2 ML VIAL. IV SCH (21:29)
[2021-09-14] MEDS: PSYLLIUM HUSK (SUGAR FREE) 1 PKT PACKET PO SCH (21:29)
[2021-09-14] MEDS: INSULIN LISPRO 300 UNITS/3 ML VIAL. SQ SCH (21:30)
[2021-09-14 23:00] VITALS: BP 136/53
[2021-09-15 03:00] VITALS: BP 146/53
[2021-09-15] MEDS: methylPREDNISolone SOD SUCC PF 125 MG/2 ML VIAL. IV SCH (06:05)
[2021-09-15] MEDS: HEPARIN for SUB-Q USE 5,000 UNIT/ML VIAL. SQ SCH ×3 (06:05→21:58)
[2021-09-15 07:00] VITALS: BP 151/62
[2021-09-15] MEDS: BUDESONIDE 0.5 MG/2 ML NEBU. NEB SCH ×2 (08:12→20:00)
[2021-09-15] MEDS: IPRATRPIUM/ALBUTEROL 0.5/2.5MG 3 ML NEBU. NEB SCH ×4 (08:12→20:00)
[2021-09-15] MEDS: LOSARTAN POTASSIUM 50 MG TABLET. PO SCH (09:47)
[2021-09-15] MEDS: PANTOPRAZOLE 40 MG TABLET.DR. PO SCH (09:48)
[2021-09-15] MEDS: INSULIN LISPRO 300 UNITS/3 ML VIAL. SQ SCH ×5 (09:52→23:04)
[2021-09-15 10:43] VITALS: BP 155/66
[2021-09-15] MEDS: cefTRIAXone IV Push 1 GM VIAL. IVP SCH (12:21)
--- NOTE | 2021-09-15 12:22 | CONS ---
DATE OF CONSULTATION: 09/15/2021 PULMONARY CONSULTATION ATTENDING PHYSICIAN: Galo Witt MD REASON FOR CONSULTATION: Dyspnea. HISTORY OF PRESENT ILLNESS: The patient is an 85-year-old female who has history of type 2 diabetes, hypertension, history of tobaccoism, and likely underlying COPD. She was brought into the Emergency Room with complaint of shortness of breath for a few days. She also had a cough and rhinitis. The patient had no chest pain, no abdominal pain, no diarrhea, no sick contacts. The patient has been smoking 1-5 cigarettes a day. The patient underwent further evaluation in the Emergency Room and a CT angiogram was performed. I have reviewed the CT chest. There was no evidence of pulmonary embolism. There was 1.2 cm ground glass nodule in the left lingula. There is a 6.5 mm nodule in the right upper lobe. There was a nodule in the right lobe of the thyroid gland. There is a 4 mm nodule in the right apex. I have been asked to see her for further evaluation. I have obtained much of the history from the nursing staff as she does not speak Moroccan. PAST MEDICAL HISTORY: Significant for hypertension, COPD, hyperlipidemia, pneumonia, GERD, depression, osteoarthritis, and diabetes. PAST SURGICAL HISTORY: Cholecystectomy and hernia repair. FAMILY HISTORY: Hypertension. SOCIAL HISTORY: Smoker, less than 1 pack per day. ALLERGIES: None. MEDICATIONS: Reviewed as listed in the MRAD. She was started on IV steroids and DuoNeb. REVIEW OF SYSTEMS: Limited as she is unable to answer much questions. PHYSICAL EXAMINATION: VITAL SIGNS: Reviewed. Afebrile, blood pressure 155/66, pulse ox 96% on 3 liters. NECK: Supple. LUNGS: With few rhonchi. CARDIOVASCULAR: With a regular rate. ABDOMEN: Soft, nontender. EXTREMITIES: With no pitting edema. LABORATORY DATA: Reviewed. Influenza negative. COVID negative. White cell count 7.5, hemoglobin 10.9, and platelets are 391. IMPRESSION: 1. Dyspnea with acute hypoxic respiratory failure secondary to acute exacerbation of chronic obstructive pulmonary disease and acute bronchitis with mild pneumonia. 2. Abnormal CT chest with 1.2 cm ground glass nodule in the left lingula, which is likely inflammatory. There is also a 6.5 mm nodule in the right upper lobe and also a 4 mm nodule in the right apex. Could be noncalcified granulomas. Needs to have a followup CT chest in 6 months. We will treat the 1.2 cm ground glass nodule as inflammatory. 3. No significant leukocytosis. 4. COVID negative and influenza negative. RECOMMENDATIONS: 1. Discussed with RN. We will continue present oxygen, keep saturation 92% and above. 2. DuoNeb. 3. IV steroids with gradual taper. 4. Heparin for DVT prophylaxis. 5. Add empiric antibiotic, Rocephin for now. 6. Discussed with RN. We will follow along with you. 7. f/u ct chest in 4-6 months SARAHY/GRACIELA DR: Mamie TID: [id number] MTDD
[2021-09-15 15:00] VITALS: BP 133/45
[2021-09-15] MEDS: methylPREDNISolone SOD SUCC PF 40 MG/ML VIAL. IV SCH ×2 (15:03→21:49)
--- NOTE | 2021-09-15 15:18 | PDOC ---
[employer] PROGRESS NOTE Date of Service DOS: DATE: 09/15/21 TIME: 15:16 Chief Complaint Chief Complaint Assessment/Plan Acute respiratory failure with hypoxia - O2 requirements new, wean as tolerated, treat acute bronchitis/copd Acute copd exacerbation - duonebs, pulmicort, and steroids. Stop smoking. Type 2 Diabetes Mellitus - sliding scale Current smoker - counseled on cessation HTN - cont home meds Bronchitis -as above Anemia of chronic disease Incidental finding of 2.5 cm hypodense thyroid nodulewill require outpatient ultrasound Pulmonary nodule in the right upper lobe requiring follow-up with CT of the chest FEN - ADA diet PPX - heparin FULL CODE Dispo - inpatient History of Present Illness History of Present Illness 85 year old female with history of diabetes type 2, hypertension, COPD current smoker, bronchitis, who presents the ED today to be evaluated for shortness of breath for 2 days cough rhinitis and shortness of breath. Denies chest pain, abdominal pain, diarrhea, sick contacts or loss of smell. Continues to smoke a little bit every day 1-5 cigarettes. Translation services through [employer] and granddaughter who is bilingual bedside. Labs with WBC 7.5, Hb 10.9, platelets 391, NA 142, K4.3, BUN 13, CR 1, glucose 102, lactic acid 1.1, calcium 8.6, bilirubin 0.3, AST 9, ALT 15, alkaline phosphatase 70, albumin 3.1, NT proBNP 130, high-sensitivity troponin is 7, rapid COVID-19 negative, rapid influenza negative. EKG sinus tachycardia rate 101 bpm normal axis and intervals, QTC [address] elevations or TWI. Chest radiograph with mild interstitial prominence lobe consolidation noted. Due to tachycardia and hypoxia history of bronchitis she underwent CTPA which was negative for pulmonary embolism did note a 1.2 cm left lingular nodule and a 6.5 mm nodule right upper lobe and a 2.5 cm right thyroid nodule and interstitial opacities upper lobes worse on the right. Placed on O2 given aggressive nebulizer treatments still requiring O2 admitted for further care. 09/15/2021 No acute events overnight. Patient seen examined bedside. Afebrile and vital signs are stable. Saturating 97% on 3 L nasal cannula. Patient states she wears about 1 to 2 L nasal cannula of oxygen at home. Not dyspneic upon my encounter. Patient's chart, labs, images were reviewed and discussed with RN Vitals/I&O Vitals/I&O: Vital Signs Date Time Temp Pulse Resp B/P (MAP) Pulse Ox O2 Delivery O2 Flow Rate FiO2 09/15/21 12:59 97 Nasal Cannula 3.0 09/15/21 10:43 98.1 94 18 155/66 (95) 98.1 Physical Exam General: Alert, Oriented X3, Cooperative, moderate distress Lungs: Clear Abdomen: Normal bowel sounds, Soft, No tenderness, No hepatosplenomegaly, No masses Extremities: No clubbing, No cyanosis, No edema, Normal pulses, No tenderness/swelling Skin: No rashes, No breakdown, No significant lesion Labs Labs: Laboratory Tests Test 09/14/21 17:04 09/14/21 19:50 09/15/21 07:22 09/15/21 11:35 Glucose (Fingerstick) 121 mg/dL (70-99) 278 mg/dL (70-99) 192 mg/dL (70-99) 259 mg/dL (70-99) Assessment and Plan Assessmemt and Plan Problems Medical Problems: (1) COPD exacerbation Status: Acute Comment Review of Relevant I have reviewed the following items cayla (where applicable) has been applied. Medications: Current Medications Medications (Trade) Dose Ordered Sig/Kristen Route PRN Reason Start Time Stop Time Status Last Admin Dose Admin Methylprednisolone Sodium Succinate (SOLU-Medrol 125MG VIAL) 80 mg Q8HRS IV 09/14/21 22:00 09/15/21 14:20 DC 09/15/21 06:05 Albuterol/ Ipratropium (Duoneb) 3 ml RTQID NEB 09/14/21 20:00 09/15/21 12:59 Psyllium Hydrophilic Mucilloid (Metamucil Fiber Packet) 1 pkt QHS PO 09/14/21 21:00 09/14/21 21:29 Nicotine (Nicoderm Cq 21mg) 1 patch PRN DAILY PRN TD SMOKING CESSATION 09/14/21 17:00 09/15/21 09:47 Budesonide (Pulmicort) 0.5 mg RTBID NEB 09/14/21 20:00 09/15/21 08:12 Guaifenesin (Robitussin Dm) 10 ml PRN Q6HRS PRN PO COUGH 09/14/21 17:00 09/15/21 09:47 Heparin Sodium (Porcine) (Heparin Sodium) 5,000 unit Q8HRS SQ 09/14/21 17:00 09/15/21 15:07 Insulin Human Lispro (HumaLOG) 0-9 UNITS TIDACHC SQ 09/14/21 21:00 09/15/21 12:20 Pantoprazole Sodium (Protonix) 40 mg DAILYAC PO 09/15/21 07:30 09/15/21 09:48 Amlodipine Besylate (Norvasc) 2.5 mg DAILY PO 09/15/21 09:00 09/15/21 09:48 Losartan Potassium (Cozaar) 100 mg DAILY PO 09/15/21 09:00 09/15/21 09:47 Ceftriaxone Sodium (Rocephin) 1 gm Q24H IVP 09/15/21 12:00 09/15/21 12:21 Methylprednisolone Sodium Succinate (SOLU-Medrol 40MG VIAL) 40 mg Q8HRS IV 09/15/21 14:30 09/15/21 15:03 Justifications for Admission Other Justification COVID-19 positive test (U07.1, COVID-19) with Acute Pneumonia (J12.89, Other viral pneumonia) (If respiratory failure or sepsis present, add as separate assessment) RYAN BARROS MD September 15, 2021 15:18
--- NOTE | 2021-09-15 16:08 | NUR ---
SS following for discharge planning. SS reviewed pt chart and discussed with pt RN. Pt is from home and is currently requiring oxygen at three liters nasal canula. COVID19 negative. Pt has no home oxygen. Pulmonology following. Pt on IV Solu-Medrol and IV Rocephin. Pt ad tasha with ADL's. SS will continue to follow for discharge planning.
[2021-09-15 19:00] VITALS: BP 137/52
[2021-09-15] MEDS: PSYLLIUM HUSK (SUGAR FREE) 1 PKT PACKET PO SCH (21:49)
[2021-09-15] MEDS: LACTOBACILLUS RHAMNOSUS GG 1 CAPSULE. PO SCH (21:49)
[2021-09-15 23:00] VITALS: BP 140/57
[2021-09-15] MEDS ORDERED: INSULIN LISPRO 300 UNITS/3 ML VIAL. SQ ONE (23:00)
[2021-09-16 03:00] VITALS: BP 142/60
[2021-09-16] MEDS: methylPREDNISolone SOD SUCC PF 40 MG/ML VIAL. IV SCH ×3 (05:32→21:33)
[2021-09-16] MEDS: HEPARIN for SUB-Q USE 5,000 UNIT/ML VIAL. SQ SCH ×3 (05:38→21:40)
[2021-09-16 07:00] VITALS: BP 156/61
[2021-09-16] MEDS: IPRATRPIUM/ALBUTEROL 0.5/2.5MG 3 ML NEBU. NEB SCH ×4 (07:50→20:10)
[2021-09-16] MEDS: BUDESONIDE 0.5 MG/2 ML NEBU. NEB SCH ×2 (07:50→20:10)
[2021-09-16] MEDS: LACTOBACILLUS RHAMNOSUS GG 1 CAPSULE. PO SCH ×2 (08:33→21:33)
[2021-09-16] MEDS: LOSARTAN POTASSIUM 50 MG TABLET. PO SCH (08:33)
[2021-09-16] MEDS: PANTOPRAZOLE 40 MG TABLET.DR. PO SCH (08:33)
--- NOTE | 2021-09-16 08:38 | PDOC ---
[employer] PROGRESS NOTE Date of Service DOS: DATE: 09/16/21 TIME: 08:34 Chief Complaint Chief Complaint Assessment/Plan Acute respiratory failure with hypoxia - O2 requirements new, wean as tolerated, treat acute bronchitis/copd Epigastric pain -likely gastritis from steroids will increase GI prophylaxis. Acute copd exacerbation - duonebs, pulmicort, and steroids. Stop smoking. Type 2 Diabetes Mellitus - sliding scale Current smoker - counseled on cessation HTN - cont home meds Bronchitis -as above Anemia of chronic disease Incidental finding of 2.5 cm hypodense thyroid nodulewill require outpatient ultrasound Pulmonary nodule in the right upper lobe requiring follow-up with CT of the chest FEN - ADA diet PPX - heparin FULL CODE Dispo - inpatient History of Present Illness History of Present Illness Ms Gomez is an 85 year old female with history of diabetes type 2, hypertension, COPD current smoker, bronchitis, who presents the ED today to be evaluated for shortness of breath for 2 days cough rhinitis and shortness of breath. Denies chest pain, abdominal pain, diarrhea, sick contacts or loss of smell. Continues to smoke a little bit every day 1-5 cigarettes. Translation services through [employer] and [employer] who is bilingual bedside. Labs with WBC 7.5, Hb 10.9, platelets 391, NA 142, K4.3, BUN 13, CR 1, glucose 102, lactic acid 1.1, calcium 8.6, bilirubin 0.3, AST 9, ALT 15, alkaline phosphatase 70, albumin 3.1, NT proBNP 130, high-sensitivity troponin is 7, rapid COVID-19 negative, rapid influenza negative. EKG sinus tachycardia rate 101 bpm normal axis and intervals, QTC [address] elevations or TWI. Chest radiograph with mild interstitial prominence lobe consolidation noted. Due to tachycardia and hypoxia history of bronchitis she underwent CTPA which was negative for pulmonary embolism did note a 1.2 cm left lingular nodule and a 6.5 mm nodule right upper lobe and a 2.5 cm right thyroid nodule and interstitial opacities upper lobes worse on the right. Placed on O2 given aggressive nebulizer treatments still requiring O2 admitted for further care. 09/15: Patient seen examined bedside. Seen by pulmonology in consultation. Saturating 97% on 3 L nasal cannula. Patient noted to staff that she has respiratory machine at home there was a misunderstanding she has a nebulizer kit at home and nebulizer solution does not wear oxygen outside of the hospital. 09/16: O2 saturations 94% on 2 L/min nasal cannula. Some dyspnea has abdominal cramping screening seen constipation. Reflux today is pretty severe. She is already on Protonix. We will add one-time GI cocktail and bowel regimen. Vitals/I&O Vitals/I&O: Vital Signs Date Time Temp Pulse Resp B/P (MAP) Pulse Ox O2 Delivery O2 Flow Rate FiO2 09/16/21 07:50 98 Nasal Cannula 3.0 09/16/21 03:00 98.0 97 18 142/60 (87) 98.0 I & O 09/15/21 09/15/21 09/16/21 15:00 23:00 07:00 Intake Total 480 ml 240 ml 240 ml Output Total 1 ml Balance 480 ml 239 ml 240 ml Physical Exam General: Alert, Oriented X3, Cooperative, moderate distress Lungs: Clear Abdomen: Normal bowel sounds, Soft, No tenderness, No hepatosplenomegaly, No masses Extremities: No clubbing, No cyanosis, No edema, Normal pulses, No tenderness/swelling Skin: No rashes, No breakdown, No significant lesion Labs Labs: Laboratory Tests Test 09/15/21 11:35 09/15/21 16:33 09/15/21 19:45 09/15/21 22:54 Glucose (Fingerstick) 259 mg/dL (70-99) 118 mg/dL (70-99) 423 mg/dL (70-99) 343 mg/dL (70-99) Test 09/16/21 08:05 Glucose (Fingerstick) 217 mg/dL (70-99) Assessment and Plan Assessmemt and Plan Problems Medical Problems: (1) COPD exacerbation Status: Acute Comment Review of Relevant I have reviewed the following items cayla (where applicable) has been applied. Medications: Current Medications Medications (Trade) Dose Ordered Sig/Kristen Route PRN Reason Start Time Stop Time Status Last Admin Dose Admin Amlodipine Besylate (Norvasc) 2.5 mg DAILY PO 09/15/21 09:00 09/15/21 09:48 Losartan Potassium (Cozaar) 100 mg DAILY PO 09/15/21 09:00 09/15/21 09:47 Ceftriaxone Sodium (Rocephin) 1 gm Q24H IVP 09/15/21 12:00 09/15/21 12:21 Methylprednisolone Sodium Succinate (SOLU-Medrol 40MG VIAL) 40 mg Q8HRS IV 09/15/21 14:30 09/16/21 05:32 Lactobacillus Rhamnosus (Culturelle) 1 cap BID PO 09/15/21 21:00 09/15/21 21:49 Justifications for Admission Other Justification COVID-19 positive test (U07.1, COVID-19) with Acute Pneumonia (J12.89, Other viral pneumonia) (If respiratory failure or sepsis present, add as separate assessment) PAKO NAVA MD September 16, 2021 08:38
[2021-09-16] MEDS: INSULIN LISPRO 300 UNITS/3 ML VIAL. SQ SCH ×4 (08:43→21:41)
[2021-09-16] MEDS ORDERED: LIDO:MAALOX 1:1 20 ML SINGLE DOSE. SWSW ONE (08:45)
[2021-09-16] MEDS ORDERED: BISACODYL 10 MG SUPP.RECT. PR PRN (08:45)
[2021-09-16] MEDS ORDERED: SENNOSIDES/DOCUSATE 8.6/50MG TABLET. PO PRN (08:45)
--- NOTE | 2021-09-16 10:37 | PDOC ---
PULMONARY PROGRESS NOTES DATE: 09/16/21 TIME: 10:35 Subjective Feels better. Denies any shortness of breath. Vitals Vital Signs Date Time Temp Pulse Resp B/P (MAP) Pulse Ox O2 Delivery O2 Flow Rate FiO2 09/16/21 08:33 95 156/61 09/16/21 07:50 98 Nasal Cannula 3.0 09/16/21 07:00 98.2 18 98.2 General: Alert, No acute distress HEENT: Other Lungs: Clear Cardiovascular: S1, S2 Abdomen: Soft, Non-tender Extremities: No Edema Labs Laboratory Tests Test 09/14/21 12:06 09/14/21 12:17 09/14/21 17:04 09/14/21 19:50 White Blood Count 7.5 x10^3/uL (4.0-11.0) Red Blood Count 3.65 x10^6/uL (3.50-5.40) Hemoglobin 10.9 g/dL (12.0-15.5) Hematocrit 32.9 % (36.0-47.0) Mean Corpuscular Volume 90 fL (79-100) Mean Corpuscular Hemoglobin 30 pg (25-35) Mean Corpuscular Hemoglobin Concent 33 g/dL (31-37) Red Cell Distribution Width 19.0 % (11.5-14.5) Platelet Count 391 x10^3/uL (140-400) Neutrophils (%) (Auto) 77 % (31-73) Lymphocytes (%) (Auto) 10 % (24-48) Monocytes (%) (Auto) 9 % (0-9) Eosinophils (%) (Auto) 3 % (0-3) Basophils (%) (Auto) 1 % (0-3) Neutrophils # (Auto) 5.7 x10^3/uL (1.8-7.7) Lymphocytes # (Auto) 0.8 x10^3/uL (1.0-4.8) Monocytes # (Auto) 0.6 x10^3/uL (0.0-1.1) Eosinophils # (Auto) 0.3 x10^3/uL (0.0-0.7) Basophils # (Auto) 0.1 x10^3/uL (0.0-0.2) Sodium Level 142 mmol/L (136-145) Potassium Level 4.3 mmol/L (3.5-5.1) Chloride Level 108 mmol/L (98-107) Carbon Dioxide Level 25 mmol/L (21-32) Anion Gap 9 (6-14) Blood Urea Nitrogen 13 mg/dL (7-20) Creatinine 1.0 mg/dL (0.6-1.0) Estimated GFR (Cockcroft-Gault) 53.0 BUN/Creatinine Ratio 13 (6-20) Glucose Level 102 mg/dL (70-99) Lactic Acid Level 1.1 mmol/L (0.4-2.0) Calcium Level 8.6 mg/dL (8.5-10.1) Total Bilirubin 0.3 mg/dL (0.2-1.0) Aspartate Amino Transf (AST/SGOT) 9 U/L (15-37) Alanine Aminotransferase (ALT/SGPT) 15 U/L (14-59) Alkaline Phosphatase 70 U/L (46-116) Troponin I High Sensitivity 7 ng/L (4-50) GE-Yeo-I-Type Natriuretic Peptide 130 pg/mL (0-449) Total Protein 6.6 g/dL (6.4-8.2) Albumin 3.1 g/dL (3.4-5.0) Albumin/Globulin Ratio 0.9 (1.0-1.7) Influenza Type A Antigen Negative (NEGATIVE) Influenza Type B Antigen Negative (NEGATIVE) SARS-CoV-2 Antigen (Rapid) Negative (NEGATIVE) Glucose (Fingerstick) 121 mg/dL (70-99) 278 mg/dL (70-99) Test 09/15/21 07:22 09/15/21 11:35 09/15/21 16:33 09/15/21 19:45 Glucose (Fingerstick) 192 mg/dL (70-99) 259 mg/dL (70-99) 118 mg/dL (70-99) 423 mg/dL (70-99) Test 09/15/21 22:54 09/16/21 08:05 Glucose (Fingerstick) 343 mg/dL (70-99) 217 mg/dL (70-99) Laboratory Tests Test 09/15/21 11:35 09/15/21 16:33 09/15/21 19:45 09/15/21 22:54 Glucose (Fingerstick) 259 mg/dL (70-99) 118 mg/dL (70-99) 423 mg/dL (70-99) 343 mg/dL (70-99) Test 09/16/21 08:05 Glucose (Fingerstick) 217 mg/dL (70-99) Medications Active Scripts Medications Dose Route/Sig Max Daily Dose Days Date Category Dexamethasone 6 Mg Tablet 6 Mg PO DAILY 7 05/12/21 Rx Flovent 110MCG Hfa (Fluticasone Propionate) 12 Gm Aer.w.adap 2 Puff IH BID 05/11/21 Reported Losartan Potassium 100 Mg Tablet 100 Mg PO DAILY 05/11/21 Reported Protonix (Pantoprazole Sodium) 40 Mg Tablet.dr 40 Mg PO DAILYAC 05/11/21 Reported Norvasc (Amlodipine Besylate) 2.5 Mg Tablet 1 Tab PO DAILY 01/16/19 Rx Duoneb 0.5-3(2.5) Mg/3 Ml (Albuterol/Ipratropium) 3 Ml Ampul.neb 3 Ml NEB QID PRN 30 02/17/18 Rx Ferrous Sulfate 325 Mg Tablet 1 Tab PO TID 07/14/15 Reported Ventolin Hfa Inhaler (Albuterol Sulfate) 18 Gm Hfa.aer.ad 1 Puff INH Q4HRS 11/19/13 Rx Metformin Hcl 500 Mg Tablet 500 Mg PO BIDWMEALS 11/18/13 Reported Impression . 1. Dyspnea with acute hypoxic respiratory failure secondary to acute exacerbation of chronic obstructive pulmonary disease and acute bronchitis with mild pneumonia. 2. Abnormal CT chest with 1.2 cm ground glass nodule in the left lingula, which is likely inflammatory. There is also a 6.5 mm nodule in the right upper lobe and also a 4 mm nodule in the right apex. Could be noncalcified granulomas. Needs to have a followup CT chest in 6 months. We will treat the 1.2 cm ground glass nodule as inflammatory. 3. No significant leukocytosis. 4. COVID negative and influenza negative. Plan . RECOMMENDATIONS: 1. Discussed with RN. We will continue present oxygen, keep saturation 92% and above. 2. DuoNeb. 3. steroids with gradual taper. 4. Heparin for DVT prophylaxis. 5. empiric antibiotic, Rocephin for now. 6. Discussed with RN. We will follow along with you. 7. f/u ct chest in 4-6 months BRANDI HIGGINS MD September 16, 2021 10:37
[2021-09-16 11:00] VITALS: BP 116/59
[2021-09-16] MEDS: cefTRIAXone IV Push 1 GM VIAL. IVP SCH (12:17)
--- NOTE | 2021-09-16 13:11 | NUR ---
SS following up with discharge planning. SS reviewed pt chart and discussed with pt RN. Pt is currently requiring oxygen at three liters nasal canula. COVID19 negative. Pt has no home oxygen. Pulmonology following. Pt on IV Solu-Medrol and IV Rocephin. SS will continue to follow for discharge planning.
[2021-09-16 15:00] VITALS: BP 151/66
[2021-09-16 19:00] VITALS: BP 152/58
[2021-09-16] MEDS: PSYLLIUM HUSK (SUGAR FREE) 1 PKT PACKET PO SCH (21:33)
[2021-09-16 23:00] VITALS: BP 161/60
[2021-09-17 03:00] VITALS: BP 106/55
[2021-09-17] MEDS: methylPREDNISolone SOD SUCC PF 40 MG/ML VIAL. IV SCH (05:35)
[2021-09-17] MEDS: HEPARIN for SUB-Q USE 5,000 UNIT/ML VIAL. SQ SCH ×2 (05:47→14:00)
[2021-09-17 07:00] VITALS: BP 127/70
[2021-09-17] MEDS: IPRATRPIUM/ALBUTEROL 0.5/2.5MG 3 ML NEBU. NEB SCH ×3 (07:45→15:54)
[2021-09-17] MEDS: BUDESONIDE 0.5 MG/2 ML NEBU. NEB SCH (07:45)
[2021-09-17] MEDS: INSULIN LISPRO 300 UNITS/3 ML VIAL. SQ SCH ×2 (08:09→12:02)
[2021-09-17] MEDS: PANTOPRAZOLE 40 MG TABLET.DR. PO SCH (09:05)
[2021-09-17] MEDS: LACTOBACILLUS RHAMNOSUS GG 1 CAPSULE. PO SCH (09:05)
[2021-09-17] MEDS: LOSARTAN POTASSIUM 50 MG TABLET. PO SCH (09:06)
--- NOTE | 2021-09-17 09:46 | PDOC ---
PULMONARY PROGRESS NOTES DATE: 09/17/21 TIME: 09:46 Subjective Patient not more short of air Vitals Vital Signs Date Time Temp Pulse Resp B/P (MAP) Pulse Ox O2 Delivery O2 Flow Rate FiO2 09/17/21 09:06 89 127/70 09/17/21 07:48 98 Nasal Cannula 2.0 09/17/21 07:00 97.9 20 97.9 General: Alert, No acute distress HEENT: Other Lungs: Clear Cardiovascular: S1, S2 Abdomen: Soft, Non-tender Extremities: No Edema Labs Laboratory Tests Test 09/15/21 11:35 09/15/21 16:33 09/15/21 19:45 09/15/21 22:54 Glucose (Fingerstick) 259 mg/dL (70-99) 118 mg/dL (70-99) 423 mg/dL (70-99) 343 mg/dL (70-99) Test 09/16/21 08:05 09/16/21 11:56 09/16/21 16:44 09/16/21 19:58 Glucose (Fingerstick) 217 mg/dL (70-99) 245 mg/dL (70-99) 240 mg/dL (70-99) 323 mg/dL (70-99) Test 09/17/21 07:34 Glucose (Fingerstick) 202 mg/dL (70-99) Laboratory Tests Test 09/16/21 11:56 09/16/21 16:44 09/16/21 19:58 09/17/21 07:34 Glucose (Fingerstick) 245 mg/dL (70-99) 240 mg/dL (70-99) 323 mg/dL (70-99) 202 mg/dL (70-99) Medications Active Scripts Medications Dose Route/Sig Max Daily Dose Days Date Category Dexamethasone 6 Mg Tablet 6 Mg PO DAILY 7 05/12/21 Rx Flovent 110MCG Hfa (Fluticasone Propionate) 12 Gm Aer.w.adap 2 Puff IH BID 05/11/21 Reported Losartan Potassium 100 Mg Tablet 100 Mg PO DAILY 05/11/21 Reported Protonix (Pantoprazole Sodium) 40 Mg Tablet.dr 40 Mg PO DAILYAC 05/11/21 Reported Norvasc (Amlodipine Besylate) 2.5 Mg Tablet 1 Tab PO DAILY 01/16/19 Rx Duoneb 0.5-3(2.5) Mg/3 Ml (Albuterol/Ipratropium) 3 Ml Ampul.neb 3 Ml NEB QID PRN 30 02/17/18 Rx Ferrous Sulfate 325 Mg Tablet 1 Tab PO TID 07/14/15 Reported Ventolin Hfa Inhaler (Albuterol Sulfate) 18 Gm Hfa.aer.ad 1 Puff INH Q4HRS 11/19/13 Rx Metformin Hcl 500 Mg Tablet 500 Mg PO BIDWMEALS 11/18/13 Reported Impression . 1. Dyspnea with acute hypoxic respiratory failure secondary to acute exacerbation of chronic obstructive pulmonary disease and acute bronchitis with mild pneumonia. 2. Abnormal CT chest with 1.2 cm ground glass nodule in the left lingula, which is likely inflammatory. There is also a 6.5 mm nodule in the right upper lobe and also a 4 mm nodule in the right apex. Could be noncalcified granulomas. Needs to have a followup CT chest in 6 months. We will treat the 1.2 cm ground glass nodule as inflammatory. 3. No significant leukocytosis. 4. COVID negative and influenza negative. Plan . Updated 09/17 Patient discharged home today Does not require oxygen Spoke with family at the bedside follow-up in 4 to [address] chest Patient instructed on the importance of discontinue tobacco use LAYA GRANT MD September 17, 2021 09:46
[2021-09-17 11:00] VITALS: BP 170/67
--- NOTE | 2021-09-17 12:34 | PDOC ---
[employer] [facility] PROGRESS NOTE Date of Service DOS: DATE: 09/17/21 TIME: 12:32 Chief Complaint Chief Complaint Assessment/Plan Acute respiratory failure with hypoxia - O2 requirements new, wean as tolerated, treat acute bronchitis/copd Epigastric pain -likely gastritis from steroids will increase GI prophylaxis. Acute copd exacerbation - duonebs, pulmicort, and steroids. Stop smoking. Type 2 Diabetes Mellitus - sliding scale Current smoker - counseled on cessation HTN - cont home meds Bronchitis -as above Anemia of chronic disease Incidental finding of 2.5 cm hypodense thyroid nodulewill require outpatient ultrasound Pulmonary nodule in the right upper lobe requiring follow-up with CT of the chest FEN - ADA diet PPX - heparin FULL CODE Dispo - inpatient History of Present Illness History of Present Illness Ms Gomez is an 85 year old female with history of diabetes type 2, hypertension, COPD current smoker, bronchitis, who presents the ED today to be evaluated for shortness of breath for 2 days cough rhinitis and shortness of breath. Denies chest pain, abdominal pain, diarrhea, sick contacts or loss of smell. Continues to smoke a little bit every day 1-5 cigarettes. Translation services through [employer] and [email or web address] who is bilingual bedside. Labs with WBC 7.5, Hb 10.9, platelets 391, NA 142, K4.3, BUN 13, CR 1, glucose 102, lactic acid 1.1, calcium 8.6, bilirubin 0.3, AST 9, ALT 15, alkaline phosphatase 70, albumin 3.1, NT proBNP 130, high-sensitivity troponin is 7, rapid COVID-19 negative, rapid influenza negative. EKG sinus tachycardia rate 101 bpm normal axis and intervals, QTC [address] elevations or TWI. Chest radiograph with mild interstitial prominence lobe consolidation noted. Due to tachycardia and hypoxia history of bronchitis she underwent CTPA which was negative for pulmonary embolism did note a 1.2 cm left lingular nodule and a 6.5 mm nodule right upper lobe and a 2.5 cm right thyroid nodule and interstitial opacities upper lobes worse on the right. Placed on O2 given aggressive nebulizer treatments still requiring O2 admitted for further care. 09/15: Patient seen examined bedside. Seen by pulmonology in consultation. Saturating 97% on 3 L nasal cannula. Patient noted to staff that she has respiratory machine at home there was a misunderstanding she has a nebulizer kit at home and nebulizer solution does not wear oxygen outside of the hospital. 09/16: O2 saturations 94% on 2 L/min nasal cannula. Some dyspnea has abdominal cramping screening seen constipation. Reflux today is pretty severe. She is already on Protonix. We will add one-time GI cocktail and bowel regimen. 09/17: O2 saturations 98% on 1.5 L nasal cannula. Wheezing improved. Discussed with respiratory therapy will perform 6-minute walk. She had a bowel movement had some relief no further reflux today. Discussed with her and family bedside smoking cessation is torres pending results of 6-minute walk test will be able to go home with or without oxygen therapy Vitals/I&O Vitals/I&O: Vital Signs Date Time Temp Pulse Resp B/P (MAP) Pulse Ox O2 Delivery O2 Flow Rate FiO2 09/17/21: 98 Nasal Cannula 2.0 09/17/21 11:00 98.1 105 20 170/67 (101) 98.1 I & O 09/16/21 09/16/21 09/17/21 15:00 23:00 07:00 Intake Total 420 ml 260 ml 120 ml Output Total 0 ml Balance 420 ml 260 ml 120 ml Physical Exam General: Alert, Oriented X3, Cooperative, moderate distress Lungs: Clear Abdomen: Normal bowel sounds, Soft, No tenderness, No hepatosplenomegaly, No masses Extremities: No clubbing, No cyanosis, No edema, Normal pulses, No tenderness/swelling Skin: No rashes, No breakdown, No significant lesion Labs Labs: Laboratory Tests Test 09/16/21 16:44 09/16/21 19:58 09/17/21 07:34 09/17/21 11:08 Glucose (Fingerstick) 240 mg/dL (70-99) 323 mg/dL (70-99) 202 mg/dL (70-99) 286 mg/dL (70-99) Assessment and Plan Assessmemt and Plan Problems Medical Problems: (1) COPD exacerbation Status: Acute Comment Review of Relevant I have reviewed the following items cayla (where applicable) has been applied. Justifications for Admission Other Justification COVID-19 positive test (U07.1, COVID-19) with Acute Pneumonia (J12.89, Other viral pneumonia) (If respiratory failure or sepsis present, add as separate assessment) PAKO NAVA MD September 17, 2021 12:34
[2021-09-17] MEDS ORDERED: PRED20TA PO (13:44)
[2021-09-17] MEDS ORDERED: DOXY100C3 PO (13:44)
--- NOTE | 2021-09-17 13:49 | PDOC3 ---
Discharge Summary Visit Information Date of Admission: September 14, 2021 Date of Discharge: September 17, 2021 Admitting Diagnosis: Acute COPD exacerbation Final Diagnosis Problems Medical Problems: (1) COPD exacerbation Status: Acute Brief Hospital Course Allergies Allergies Coded Allergies Type Severity Reaction Last Updated Verified No Known Drug Allergies 05/19/16 No Vital Signs Vital Signs Date Time Temp Pulse Resp B/P (MAP) Pulse Ox O2 Delivery O2 Flow Rate FiO2 09/17/21 12: 98 Nasal Cannula 2.0 09/17/21 11:00 98.1 105 20 170/67 (101) 98.1 Lab Results Laboratory Tests Test 09/15/21 16:33 09/15/21 19:45 09/15/21 22:54 09/16/21 08:05 Glucose (Fingerstick) 118 mg/dL (70-99) 423 mg/dL (70-99) 343 mg/dL (70-99) 217 mg/dL (70-99) Test 09/16/21 11:56 09/16/21 16:44 09/16/21 19:58 09/17/21 07:34 Glucose (Fingerstick) 245 mg/dL (70-99) 240 mg/dL (70-99) 323 mg/dL (70-99) 202 mg/dL (70-99) Test 09/17/21 11:08 Glucose (Fingerstick) 286 mg/dL (70-99) Laboratory Tests Test 09/16/21 16:44 09/16/21 19:58 09/17/21 07:34 09/17/21 11:08 Glucose (Fingerstick) 240 mg/dL (70-99) 323 mg/dL (70-99) 202 mg/dL (70-99) 286 mg/dL (70-99) Brief Hospital Course Ms Gomez is an 85 year old female with history of diabetes type 2, hypertension, COPD current smoker, bronchitis, who presents the ED today to be evaluated for shortness of breath for 2 days cough rhinitis and shortness of breath. Denies chest pain, abdominal pain, diarrhea, sick contacts or loss of smell. Continues to smoke a little bit every day 1-5 cigarettes. Translation services through [employer] and granddaughter who is bilingual bedside. Labs with WBC 7.5, Hb 10.9, platelets 391, NA 142, K4.3, BUN 13, CR 1, glucose 102, lactic acid 1.1, calcium 8.6, bilirubin 0.3, AST 9, ALT 15, alkaline phosphatase 70, albumin 3.1, NT proBNP 130, high-sensitivity troponin is 7, rapid COVID-19 negative, rapid influenza negative. EKG sinus tachycardia rate 101 bpm normal axis and intervals, QTC [address] elevations or TWI. Chest radiograph with mild interstitial prominence lobe consolidation noted. Due to tachycardia and hypoxia history of bronchitis she underwent CTPA which was negative for pulmonary embolism did note a 1.2 cm left lingular nodule and a 6.5 mm nodule right upper lobe and a 2.5 cm right thyroid nodule and interstitial opacities upper lobes worse on the right. Placed on O2 given aggressive nebulizer treatments still requiring O2 admitted for further care. 09/15: Patient seen examined bedside. Seen by pulmonology in consultation. Saturating 97% on 3 L nasal cannula. Patient noted to staff that she has respiratory machine at home there was a misunderstanding she has a nebulizer kit at home and nebulizer solution does not wear oxygen outside of the hospital. 09/16: O2 saturations 94% on 2 L/min nasal cannula. Some dyspnea has abdominal cramping screening seen constipation. Reflux today is pretty severe. She is already on Protonix. We will add one-time GI cocktail and bowel regimen. 09/17: O2 saturations 98% on 1.5 L nasal cannula. Wheezing improved. Discussed with respiratory therapy will perform 6-minute walk. She had a bowel movement had some relief no further reflux today. Discussed with her and family bedside smoking cessation is torres pending results of 6-minute walk test will be able to go home with or without oxygen therapy Consults: Pulmonology Problem list: Acute respiratory failure with hypoxia - O2 requirements new, weaned, treated acute bronchitis/copd Epigastric pain -likely gastritis from steroids will increase GI prophylaxis. Acute copd exacerbation - duonebs, pulmicort, and steroids. Stop smoking. Type 2 Diabetes Mellitus - sliding scale Current smoker - counseled on cessation HTN - cont home meds Bronchitis -as above Anemia of chronic disease Incidental finding of 2.5 cm hypodense thyroid nodulewill require outpatient ultrasound Pulmonary nodule in the right upper lobe requiring follow-up with CT of the chest Greater than 30 minutes spent on d/c Discharge Information Condition at Discharge: Improved Follow Up: Weeks (1) Disposition/Orders: D/C to Home Scheduled Albuterol Sulfate (Ventolin Hfa Inhaler) 18 Gm Hfa.aer.ad, 1 PUFF INH Q4HRS for FOR ASTHMA, #1 Ref 2 Prescribed by: ALEX JEFF on 11/19/13 1312 Amlodipine Besylate (Norvasc) 2.5 Mg Tablet, 1 TAB PO DAILY for htn, #30 Ref 1 Prescribed by: DANG MUSTAFA on 01/16/19 1149 Last Action: Converted on 09/14/211699 by PAKO NAVA MD Doxycycline Hyclate (Doxycycline Hyclate) 100 Mg Capsule, 1 CAP PO BID for Bronchitis for 5 Days, #10 Prescribed by: PAKO NAVA MD on 09/17/21 1344 Ferrous Sulfate (Ferrous Sulfate) 325 Mg Tablet, 1 TAB PO TID for supp, #30 Ref 3 (Reported) Entered as Reported by: JEAN PUCKETT on 07/14/15 2246 Fluticasone Propionate (Flovent 110MCG Hfa) 12 Gm Aer.w.adap, 2 PUFF IH BID for lungs, #1 Ref 2 (Reported) Entered as Reported by: KUMAR GEORGE on 05/11/21 0700 Losartan Potassium (Losartan Potassium) 100 Mg Tablet, 100 MG PO DAILY for H YPERTENSION, (Reported) Entered as Reported by: KUMAR GEORGE on 05/11/21 0700 Last Action: Converted on 09/14/211699 by PAKO NAVA MD Metformin Hcl (Metformin Hcl) 500 Mg Tablet, 500 MG PO BIDWMEALS for ANTI- DIABETIC, Ref 0 (Reported) Entered as Reported by: Karol Laura on 11/18/13 0251 Pantoprazole Sodium (Protonix ) 40 Mg Tablet.dr, 40 MG PO DAILYAC for GERD, (Reported) Entered as Reported by: KUMAR GOERGE on 05/11/21 0700 Last Action: Continued on 09/14/211699 by PAKO NAVA MD Prednisone (Prednisone) 20 Mg Tablet, 20 MG PO DAILY for Bronchitis for 5 Days, #5 Prescribed by: APKO NAVA MD on 09/17/21 1344 Scheduled PRN Ipratropium/Albuterol Sulfate (Duoneb 0.5-3(2.5) Mg/3 Ml) 3 Ml Ampul.neb, 3 ML NEB QID PRN for WHEEZING for 30 Days, #120 Ref 2 Prescribed by: PAKO NAVA MD on 02/17/18 1218 Discontinued Medications Dexamethasone (Dexamethasone) 6 Mg Tablet, 6 MG PO DAILY for COPD/COVID19 for 7 Days, #7 Prescribed by: PAKO NAVA MD on 05/12/21 1402 Justicifation of Admission Dx: Justifications for Admission: Justification of Admission Dx: Yes Respiratory Failure: Severe Resp Distress PAKO NAVA MD September 17, 2021 13:49
[2021-09-17] MEDS: cefTRIAXone IV Push 1 GM VIAL. IVP SCH (14:06)
--- NOTE | 2021-09-17 14:59 | NUR ---
SS following up with discharge planning. SS reviewed pt chart and discussed with pt RN. Pt is currently on room air. Six minute walk completed and no home oxygen needed. Discharge order on the chart for home with self care.
[2021-09-17 15:00] VITALS: BP 147/61
--- NOTE | 2021-09-17 16:30 | NUR ---
DISCHARGE INSTRUCTIONS GIVEN TO PATIENT AND GRANDDAUGHTER AT THE BEDSIDE, QUESTIONS AND CONCERNS ANSWERED, ALL PERSONAL BELONGINGS GATHERED BY THE PATIENT AND PLACED IN BAGS FOR DISCHARGE.
--- NOTE | 2021-09-17 16:45 | NUR ---
PATIENT LEAVES THE UNIT PER W/C, EMOTIONAL SUPPORT GIVEN, FOLLOW UP APPOINTMENTS ENCOURAGED.
[2021-09-18] MEDS ORDERED: predniSONE 20 MG TABLET PO SCH (09:00)
== END 2021-09-17 16:45 | disposition home or self-care (01) | DRG 189 ==
LOC: ER 10:46 → 5 NORTH 14:25
PROVIDERS: ADMIT Internal Medicine; ATTEND Internal Medicine
DX: J96.01 Acute respiratory failure with hypoxia (principal); D63.8 Anemia in other chronic diseases classified elsewhere; J20.8 Acute bronchitis due to other specified organisms; K29.70 Gastritis, unspecified, without bleeding; I70.0 Atherosclerosis of aorta; E04.1 Nontoxic single thyroid nodule; E11.9 Type 2 diabetes mellitus without complications; E78.5 Hyperlipidemia, unspecified; F17.210 Nicotine dependence, cigarettes, uncomplicated; I10 Essential (primary) hypertension; J31.0 Chronic rhinitis; J43.9 Emphysema, unspecified; K21.9 Gastro-esophageal reflux disease without esophagitis; K59.00 Constipation, unspecified; Z82.49 Family history of ischemic heart disease and other diseases of the circulatory system; F32.A Depression, unspecified; M19.90 Unspecified osteoarthritis, unspecified site; Z20.822 Contact with and (suspected) exposure to COVID-19
CPT/HCPCS: 36415; 71045; 71275; 80053; 82962; 83605; 83880; 84484; 85025; 87040; 87428; 93005; 94618; 94640; 94760; 96374; J0696; J1644; J1815; J2920; J2930; Q9967; 99285-25; G0378; J7626